=== PATIENT | male | born 1950 | race Caucasian/White ===

== ENCOUNTER 2023-03-17 16:45 | Outpatient (RCR) | payer MEDICARE, OTHER, SELFPAY ==
--- NOTE | 2023-01-07 19:24 | PT.OIE ---
Current Diagnoses Strain of left Achilles tendon, initial encounter (01/07/23) Encounter for other orthopedic aftercare (01/07/23) Visit Care Team Role Provider Type Prince Meza MD Other Providers Non-Staff Specialty: Orthopedics Address: [address] [place], [address] Email: Rc Harris MD Family Provider Non-Staff Primary Care Provider Specialty: Medical Address: [address] [place], [address] Email: Attending Provider Referring Provider Specialty: Address: Phone: Fax: Email: Physical Therapy Initial Evaluation PT-OP-A Visit Information Start: 01/05/23 12:54 Freq: Status: Active Protocol: Document 01/07/23 11:50 [facility] (Rec: 01/07/23 12:48 [facility] [id number]) Out-Patient Physical Therapy Visit Information Visit Information Visit Type Initial Evaluation Visit Note 08/26 Visit Start Time 11:45 Visit Stop Time 12:30 Total Visit Minutes 45 Visit Number 1 Number of WASTEWATER DESIGN ENGINEER Visits 0 PT-OP-B Current Condition Start: 01/05/23 12:54 Freq: Status: Active Protocol: Document 01/07/23 11:50 [facility] (Rec: 01/07/23 12:48 [facility] [id number]) Current Condition History of Current Condition Onset Date 11/28/22 Current Complaints L achilles repair History of Current Condition Pt reprots he started WBAT for about 1 week. on thursday he took one of the 3 heel lifts out and was given clearance to take one out a week. He has been using the knee scooter for longer distances. He has been doing walking around the house some w/o AD and some w/ crutches. Pt has experienced some L glute pain. He does have history of some LBP that doesn't bother him much. Pt was snow cat skiing in on Sep 28and caught his tip under soemthin and was thrown. he was in his ski boot. He didn't know he ruputured his achilles until later. Pt had secondary repair of L achilles tendon w/proximal release on 11/28/22. No history of achilles issues. He idd have a Lisfranc fracture about 12 years ago and had surgery w/ hardware taken out a year or 2 after the repair. Pt has one flight of stairs at home which he has done okay on. He typically would do a bit of hiking and go for walks this time of year and yard work. he has done only a little yard work. He typically downhill skis in the winter. Pt will see January 23 again. Treatment Goals Patient/Caregiver Goals return to skiing, walking, hiking PT-OP-C Subjective Start: 01/05/23 12:54 Freq: Status: Active Protocol: Document 01/07/23 11:50 [facility] (Rec: 01/07/23 12:48 [facility] [id number]) Patient Questionnaires Foot & Ankle Ability Measure- ADL and Sports FAAM-ADL Score 45/84 FAAM-Sport Score 5/27 Lower Extremity Functional Scale LEFS Score 42/80 OP-PT Pain Assessment Location L ankle Pain Location Details achilles Scale Used minimal Description- Other (been in boot) Frequency Occasional Other Pain Aggravating Factors busy day Other Pain Alleviating Factors anti-inflamatory rarely PT-OP-F Manual Assessment Start: 01/05/23 12:54 Freq: Status: Active Protocol: Document 01/07/23 11:50 [facility] (Rec: 01/07/23 12:48 [facility] [id number]) Manual Assessments Soft Tissue Assessment Soft Tissue Mobility Assessment good healing of scar PT-OP-G Mobility & Gait Start: 01/05/23 12:54 Freq: Status: Active Protocol: Document 01/07/23 11:50 [facility] (Rec: 01/07/23 12:48 [facility] [id number]) OP Gait Assessment Comments Gait Comments Pt amb w/boot on LLE w/dec stride length PT-OP-K Range of Motion Start: 01/05/23 12:54 Freq: Status: Active Protocol: Document 01/07/23 11:50 [facility] (Rec: 01/07/23 12:48 [facility] [id number]) Ankle and Foot Goniometric Range of Motion Ankle and Foot Right Active Dorsiflexion with Knee Flexed 10 Dorsiflexion with Knee Extended 2 Plantarflexion 51 Inversion 20 Eversion 20 Left Active Dorsiflexion with Knee Flexed 5 Dorsiflexion with Knee Extended 10 Plantarflexion 38 Inversion 17 Eversion 9 Comments lacking to neutral in DF positions PT-OP-M Strength Start: 01/05/23 12:54 Freq: Status: Active Protocol: Document 01/07/23 11:50 [facility] (Rec: 01/07/23 12:48 [facility] [id number]) Hip Strength Hip Manual Muscle Testing Right Flexion (L2) 4 Good Extension (S1) 5 Normal Abduction 4+ Good+ Adduction 4- Good- External Rotation 4+ Good+ Internal Rotation 5 Normal Left Flexion (L2) 4- Good- Extension (S1) 4+ Good+ Abduction 4- Good- Adduction 3+ Fair+ External Rotation 4- Good- Internal Rotation 4+ Good+ Knee Strength Knee Manual Muscle Testing Right Flexion (S2) 5 Normal Extension (L3) 5 Normal Left Flexion (S2) 3+ Fair+ Extension (L3) 4- Good- Ankle/Foot Strength Ankle and Foot Manual Muscle Testing Right Dorsiflexion (L4) 5 Normal Plantarflexion (S1) 5 Normal Inversion 5 Normal Eversion (S1) 5 Normal Comments PF tested seated Left Comments n/t d/t restrictions PT-OP-Q Treatments Start: 01/05/23 12:54 Freq: Status: Active Protocol: Document 01/07/23 11:50 [facility] (Rec: 01/07/23 12:48 [facility] [id number]) Therapeutic Exercises Supine Exercises DF Supine Exercise Name AROM Side left Reps/Minutes 10 Sitting Exercises knee strength Sitting Exercise Name Knee ext & flex Side left Equipment Used green band Reps/Minutes 20 ea ROM Sitting Exercise Name inversion/eversion in PF and DF/PF in comfortable range (DF not past neutra Side left Reps/Minutes 10 ea Manual Therapy Treatment Soft Tissue Mobilization calf Body Location med L Mobilization Type Myofascial Release,Rolling, Strumming Intensity/Depth Moderate Body Position Supine PT-OP-T Assessment and Plan Start: 01/05/23 12:54 Freq: Status: Active Protocol: Document 01/07/23 11:50 [facility] (Rec: 01/07/23 12:48 [facility] [id number]) Physical Therapy Assessment Rehab Potential Rehabilitation Potential Excellent Evaluation Complexity Number of Personal Factors/Comorbidities 3 or More Number of Body Systems Impaired 4 or More Clinical Presentation at Evaluation Evolving Impairments Impairments Activity Tolerance,Balance, Functional Activities, Functional Mobility,Gait, Integument,Pain,Posture,ROM, Soft Tissue Mobility,Strength Goals LEFS Impairment 42/80 Short Term Goal (STG) Pt will improve score to at least 52/80 to show improved fucntional ability. STG Duration 02/23/23 Assisted Goal (LTG) Pt will improve score to at least 65/80 to show improved fucntional ability. LTG Duration 03/29/23 activities Short Term Goal (STG) Pt will be able to start short walks w/o boot without inc pain greater than 3/10 STG Duration 02/25/23 Risk Control Product Liability Director Goal (LTG) Pt will be able to return to hiking on uneven terrain w/o pain greater than 1/10. LTG Duration 04/01/23 ROM Short Term Goal (STG) Pt will imrpove DF to neutral in both knee ext and flex position to imrpove pt gait mechanics and functional ablity. STG Duration 02/14/23 Assisted Goal (LTG) Pt will imrpove DF to 5 deg knee ext and 10 deg in knee flex position to imrpove pt gait mechanics and functional ablity. LTG Duration 04/01/23 Assessment Summary Assessment Pt presents 5 weeks and 5 days s/p L achilles tendon repair w/proximal release. He has been amb some WBAT per MD release at last visit and has taken 1/3 heel lifts out of his shoe and was insturcted to dec one each week (mondays). he has ovearll good healing of the scar and good pain contorl and as expected has L sided weakness and dec ROM. Pt is typically active and hikes /walks in the summer and skis in the winter. Pt would benefit from skilled PT to work on this in order to return pt back to high activity level. Physical Therapy Plan Frequency and Duration Frequency of Treatment 1-2x/wk Duration of treatment (weeks) 12 Plan of Care Start Date 01/07/23 Plan of Care End Date 04/01/23 Therapeutic Interventions Therapeutic Interventions Balance Training,Gait Training ,Home Exercise Program,Joint Mobilizations,Manual Therapy, Neuromuscular Re-education, Orthotic/Prosthetic Management ,Patient/Caregiver Education, Self-Care/Home Management,Soft Tissue Mobilization,Taping, Therapeutic Activities, Therapeutic Exercises Modalities Cold Pack/Ice Massage,Electric Stimulation,Hot Packs, Infrared Therapy,Iontophoresis ,Ultrasound Next Visit Focus/Plan Next Note Type Treatment Note Next Visit Plan follow protocol: starting 01/09 -01/23 (6-8 wks)- WBAT in boot; start SLOW DF stretching; bike , work on gait in boot, ROM for ankle (BAPs board, ABCs, circles -slow and gentle for all); STM to calf and scar
--- NOTE | 2023-01-07 19:24 | PT.OPPOC ---
Physical, Occupational & Speech Therapy At [facility] Current Diagnoses Strain of left Achilles tendon, initial encounter (01/07/23) Encounter for other orthopedic aftercare (01/07/23) Visit Care Team Role Provider Type Prince Meza MD Other Providers Non-Staff Specialty: Orthopedics Address: [address] [place], [address] Email: Rc Harris MD Family Provider Non-Staff Primary Care Provider Specialty: Medical Address: [address] [place], [address] Email: Attending Provider Referring Provider Specialty: Address: Phone: Fax: Email: Plan Of Care PT-OP-T Assessment and Plan Start: 01/05/23 12:54 Freq: Status: Active Protocol: Document 01/07/23 11:50 [facility] (Rec: 01/07/23 12:48 [facility] [id number]) Physical Therapy Assessment Rehab Potential Rehabilitation Potential Excellent Evaluation Complexity Number of Personal Factors/Comorbidities 3 or More Number of Body Systems Impaired 4 or More Clinical Presentation at Evaluation Evolving Impairments Impairments Activity Tolerance,Balance, Functional Activities, Functional Mobility,Gait, Integument,Pain,Posture,ROM, Soft Tissue Mobility,Strength Goals LEFS Impairment 42/80 Short Term Goal (STG) Pt will improve score to at least 52/80 to show improved fucntional ability. STG Duration 02/23/23 Detention Goal (LTG) Pt will improve score to at least 65/80 to show improved fucntional ability. LTG Duration 03/29/23 activities Short Term Goal (STG) Pt will be able to start short walks w/o boot without inc pain greater than 3/10 STG Duration 02/25/23 Detention Goal (LTG) Pt will be able to return to hiking on uneven terrain w/o pain greater than 1/10. LTG Duration 04/01/23 ROM Short Term Goal (STG) Pt will imrpove DF to neutral in both knee ext and flex position to imrpove pt gait mechanics and functional ablity. STG Duration 02/14/23 Phys Asst Goal (LTG) Pt will imrpove DF to 5 deg knee ext and 10 deg in knee flex position to imrpove pt gait mechanics and functional ablity. LTG Duration 04/01/23 Assessment Summary Assessment Pt presents 5 weeks and 5 days s/p L achilles tendon repair w/proximal release. He has been amb some WBAT per MD release at last visit and has taken 1/3 heel lifts out of his shoe and was insturcted to dec one each week (mondays). he has ovearll good healing of the scar and good pain contorl and as expected has L sided weakness and dec ROM. Pt is typically active and hikes /walks in the summer and skis in the winter. Pt would benefit from skilled PT to work on this in order to return pt back to high activity level. Physical Therapy Plan Frequency and Duration Frequency of Treatment 1-2x/wk Duration of treatment (weeks) 12 Plan of Care Start Date 01/07/23 Plan of Care End Date 04/01/23 Therapeutic Interventions Therapeutic Interventions Balance Training,Gait Training ,Home Exercise Program,Joint Mobilizations,Manual Therapy, Neuromuscular Re-education, Orthotic/Prosthetic Management ,Patient/Caregiver Education, Self-Care/Home Management,Soft Tissue Mobilization,Taping, Therapeutic Activities, Therapeutic Exercises Modalities Cold Pack/Ice Massage,Electric Stimulation,Hot Packs, Infrared Therapy,Iontophoresis ,Ultrasound Next Visit Focus/Plan Next Note Type Treatment Note Next Visit Plan follow protocol: starting 01/09 -01/23 (6-8 wks)- WBAT in boot; start SLOW DF stretching; bike , work on gait in boot, ROM for ankle (BAPs board, ABCs, circles -slow and gentle for all); STM to calf and scar Plan of Care Dates Plan of Care Start Date 01/07/23 Plan of Care End Date 04/01/23 Electronically Signed by: Nakia Ferrer, PT 01/07/231923 If you are in agreement with this Plan of Care, please return a signed and dated copy. I have reviewed this Plan of Care and certify that the skilled therapy services above are required to meet the patient?s needs. Physician Signature Date Printed Name and Credentials Clinical Instructor Signature Printed Name and Credentials
--- NOTE | 2023-01-09 16:46 | PT.OTN ---
Current Diagnoses Strain of left Achilles tendon, initial encounter (01/09/23) Encounter for other orthopedic aftercare (01/09/23) Physical Therapy Treatment Note PT-OP-A Visit Information Start: 01/05/23 12:54 Freq: Status: Active Protocol: Document 01/09/23 15:15 [facility] (Rec: 01/09/23 16:45 [facility] [id number]) Out-Patient Physical Therapy Visit Information Visit Information Visit Type Treatment Note Visit Note 09/26 Visit Start Time 15:17 Visit Stop Time 16:07 Total Visit Minutes 50 Visit Number 2 Number of OPERATIONS LEAD Visits 1 PT-OP-B Current Condition Start: 01/05/23 12:54 Freq: Status: Active Protocol: Document 01/07/23 11:50 [facility] (Rec: 01/07/23 12:48 [facility] [id number]) Current Condition History of Current Condition Onset Date 11/28/22 Current Complaints L achilles repair History of Current Condition Pt reprots he started WBAT for about 1 week. on thursday he took one of the 3 heel lifts out and was given clearance to take one out a week. He has been using the knee scooter for longer distances. He has been doing walking around the house some w/o AD and some w/ crutches. Pt has experienced some L glute pain. He does have history of some LBP that doesn't bother him much. Pt was snow cat skiing in on Sep 28and caught his tip under soemthin and was thrown. he was in his ski boot. He didn't know he ruputured his achilles until later. Pt had secondary repair of L achilles tendon w/proximal release on 11/28/22. No history of achilles issues. He idd have a Lisfranc fracture about 12 years ago and had surgery w/ hardware taken out a year or 2 after the repair. Pt has one flight of stairs at home which he has done okay on. He typically would do a bit of hiking and go for walks this time of year and yard work. he has done only a little yard work. He typically downhill skis in the winter. Pt will see January 23 again. Treatment Goals Patient/Caregiver Goals return to skiing, walking, hiking PT-OP-C Subjective Start: 01/05/23 12:54 Freq: Status: Active Protocol: Document 01/09/23 15:15 [facility] (Rec: 01/09/23 16:45 [facility] [id number]) OP-PT Subjective Patient Comments Patient Comments Pt reports his L knee started to hurt yesterday so he added the easy up to his R foot today. He was up more yesterday and without the jersey wrap and woke up with increased swelling so put the jersey wrap back on today. PT-OP-F Manual Assessment Start: 01/05/23 12:54 Freq: Status: Active Protocol: Document 01/07/23 11:50 [facility] (Rec: 01/07/23 12:48 [facility] [id number]) Manual Assessments Soft Tissue Assessment Soft Tissue Mobility Assessment good healing of scar PT-OP-G Mobility & Gait Start: 01/05/23 12:54 Freq: Status: Active Protocol: Document 01/07/23 11:50 [facility] (Rec: 01/07/23 12:48 [facility] [id number]) OP Gait Assessment Comments Gait Comments Pt amb w/boot on LLE w/dec stride length PT-OP-K Range of Motion Start: 01/05/23 12:54 Freq: Status: Active Protocol: Document 01/07/23 11:50 [facility] (Rec: 01/07/23 12:48 [facility] [id number]) Ankle and Foot Goniometric Range of Motion Ankle and Foot Right Active Dorsiflexion with Knee Flexed 10 Dorsiflexion with Knee Extended 2 Plantarflexion 51 Inversion 20 Eversion 20 Left Active Dorsiflexion with Knee Flexed 5 Dorsiflexion with Knee Extended 10 Plantarflexion 38 Inversion 17 Eversion 9 Comments lacking to neutral in DF positions PT-OP-M Strength Start: 01/05/23 12:54 Freq: Status: Active Protocol: Document 01/07/23 11:50 [facility] (Rec: 01/07/23 12:48 [facility] [id number]) Hip Strength Hip Manual Muscle Testing Right Flexion (L2) 4 Good Extension (S1) 5 Normal Abduction 4+ Good+ Adduction 4- Good- External Rotation 4+ Good+ Internal Rotation 5 Normal Left Flexion (L2) 4- Good- Extension (S1) 4+ Good+ Abduction 4- Good- Adduction 3+ Fair+ External Rotation 4- Good- Internal Rotation 4+ Good+ Knee Strength Knee Manual Muscle Testing Right Flexion (S2) 5 Normal Extension (L3) 5 Normal Left Flexion (S2) 3+ Fair+ Extension (L3) 4- Good- Ankle/Foot Strength Ankle and Foot Manual Muscle Testing Right Dorsiflexion (L4) 5 Normal Plantarflexion (S1) 5 Normal Inversion 5 Normal Eversion (S1) 5 Normal Comments PF tested seated Left Comments n/t d/t restrictions PT-OP-Q Treatments Start: 01/05/23 12:54 Freq: Status: Active Protocol: Document 01/09/23 15:15 [facility] (Rec: 01/09/23 16:45 [facility] [id number]) Therapeutic Exercises Supine Exercises DF Supine Exercise Name AROM Side left Reps/Minutes 10 Sitting Exercises BAPS Sitting Exercise Name ankle ROM using BAPS board in sitting: a/p, m/l, CW/CCW Side left Resistance Level 5 Equipment Used BAPS Reps/Minutes 4 min Comments challenged w/ plantarflexion and CW/CCW knee strength Sitting Exercise Name Knee ext & flex Side left Equipment Used green band Reps/Minutes 20 ea ROM Sitting Exercise Name inversion/eversion in PF and DF/PF in comfortable range (DF not past neutra Side left Reps/Minutes 10 ea Manual Therapy Treatment Soft Tissue Mobilization calf Body Location med L Mobilization Type Myofascial Release,Rolling, Strumming,Other Intensity/Depth Moderate Body Position Supine Comments light edema massage with focus on left medial malleolus w/ LE supported on bolster. scar tissue massage in all directions and circular strokes along massage distal to proximal. Self-Care/Home Management Treatment Education Patient Education Home Exercise Program,Pain Management Other Education HEP review w/ cues for limiting knee ROM w/ ankle IV/ EV ex's. Added to HEP: DF gentle stretching gastroc/ soleus w/ towel in long sitting - HO given. I/s pt in scar tissue mobilization, and discussed use of ice for edema management. PT-OP-R Modalities Start: 01/05/23 12:54 Freq: Status: Active Protocol: Document 01/09/23 15:15 [facility] (Rec: 01/09/23 16:45 [facility] [id number]) Hot Pack/Cold Pack Treatment Ice Massage Location L ankle Patient Position Hooklying Treatment Duration (minutes) 5 Patient Tolerance Good Comments focus on visible swelling around medial malleolus, and along scar - positive feedback response. PT-OP-T Assessment and Plan Start: 01/05/23 12:54 Freq: Status: Active Protocol: Document 01/09/23 15:15 [facility] (Rec: 01/09/23 16:45 [facility] [id number]) Physical Therapy Assessment Goals LEFS Impairment 42/80 Short Term Goal (STG) Pt will improve score to at least 52/80 to show improved fucntional ability. STG Duration 02/23/23 Caretaker Grounds Goal (LTG) Pt will improve score to at least 65/80 to show improved fucntional ability. LTG Duration 03/29/23 activities Short Term Goal (STG) Pt will be able to start short walks w/o boot without inc pain greater than 3/10 STG Duration 02/25/23 Detention Goal (LTG) Pt will be able to return to hiking on uneven terrain w/o pain greater than 1/10. LTG Duration 04/01/23 ROM Short Term Goal (STG) Pt will imrpove DF to neutral in both knee ext and flex position to imrpove pt gait mechanics and functional ablity. STG Duration 02/14/23 Caretaker Grounds Goal (LTG) Pt will imrpove DF to 5 deg knee ext and 10 deg in knee flex position to imrpove pt gait mechanics and functional ablity. LTG Duration 04/01/23 Assessment Summary Assessment Pt presents with L walking boot with 2/3 heel lifts inserted, and RLE easy up. He is 6 weeks post-op as of today. Walking boot doffed with treatment focus on HEP, gentle slow DF stretching, and scar tissue mobilization. Raghu demonstrates HEP compliance and requires cues to limit knee ROM w/ ankle inversion and eversion ex's. He tolerates BAPS board for ankle range of motion ex without change in baseline symptoms and is most challenged w/ concentric control of plantarflexors and with clockwise/ counterclockwise motion, and is challenged to limit knee ROM - self-awareness improves w/ cueing and repetition. He is educated to stretch dorsiflexors in painfree, comfortable range only with gentle pull, no pain. Added to HEP: DF gentle stretching of gastroc/soleus w/ towel in long sitting - HO given. I/s pt in scar tissue mobilization , and discussed use of ice and elevation for edema management. Physical Therapy Plan Frequency and Duration Frequency of Treatment 1-2x/wk Duration of treatment (weeks) 12 Plan of Care Start Date 01/07/23 Plan of Care End Date 04/01/23 Therapeutic Interventions Therapeutic Interventions Balance Training,Gait Training ,Home Exercise Program,Joint Mobilizations,Manual Therapy, Neuromuscular Re-education, Orthotic/Prosthetic Management ,Patient/Caregiver Education, Self-Care/Home Management,Soft Tissue Mobilization,Taping, Therapeutic Activities, Therapeutic Exercises Modalities Cold Pack/Ice Massage,Electric Stimulation,Hot Packs, Infrared Therapy,Iontophoresis ,Ultrasound Next Visit Focus/Plan Next Note Type Treatment Note Next Visit Plan follow protocol: starting 01/09 -01/23 (6-8 wks)- WBAT in boot; start SLOW DF stretching; bike , work on gait in boot, ROM for ankle (BAPs board, ABCs, circles -slow and gentle for all); STM to calf and scar
--- NOTE | 2023-01-15 15:20 | PT.OTN ---
Current Diagnoses Strain of left Achilles tendon, initial encounter (01/15/23) Encounter for other orthopedic aftercare (01/15/23) Physical Therapy Treatment Note PT-OP-A Visit Information Start: 01/05/23 12:54 Freq: Status: Active Protocol: Document 01/15/23 13:39 [facility] (Rec: 01/15/23 15:20 [facility] [id number]) Out-Patient Physical Therapy Visit Information Visit Information Visit Type Treatment Note Visit Note 10/24 Visit Start Time 13:36 Visit Stop Time 14:16 Total Visit Minutes 40 Visit Number 3 Number of LEAD APPLICATION ARCHITECT Visits 0 PT-OP-B Current Condition Start: 01/05/23 12:54 Freq: Status: Active Protocol: Document 01/07/23 11:50 [facility] (Rec: 01/07/23 12:48 [facility] [id number]) Current Condition History of Current Condition Onset Date 11/28/22 Current Complaints L achilles repair History of Current Condition Pt reprots he started WBAT for about 1 week. on thursday he took one of the 3 heel lifts out and was given clearance to take one out a week. He has been using the knee scooter for longer distances. He has been doing walking around the house some w/o AD and some w/ crutches. Pt has experienced some L glute pain. He does have history of some LBP that doesn't bother him much. Pt was snow cat skiing in on Sep 28and caught his tip under soemthin and was thrown. he was in his ski boot. He didn't know he ruputured his achilles until later. Pt had secondary repair of L achilles tendon w/proximal release on 11/28/22. No history of achilles issues. He idd have a Lisfranc fracture about 12 years ago and had surgery w/ hardware taken out a year or 2 after the repair. Pt has one flight of stairs at home which he has done okay on. He typically would do a bit of hiking and go for walks this time of year and yard work. he has done only a little yard work. He typically downhill skis in the winter. Pt will see January 23 again. Treatment Goals Patient/Caregiver Goals return to skiing, walking, hiking PT-OP-C Subjective Start: 01/05/23 12:54 Freq: Status: Active Protocol: Document 01/15/23 13:39 [facility] (Rec: 01/15/23 15:20 [facility] [id number]) OP-PT Subjective Patient Comments Patient Comments ROM activities are going well at home going well. The stretches feel good. PT-OP-F Manual Assessment Start: 01/05/23 12:54 Freq: Status: Active Protocol: Document 01/07/23 11:50 [facility] (Rec: 01/07/23 12:48 [id number] Manual Assessments Soft Tissue Assessment Soft Tissue Mobility Assessment good healing of scar PT-OP-G Mobility & Gait Start: 01/05/23 12:54 Freq: Status: Active Protocol: Document 01/07/23 11:50 [facility] (Rec: 01/07/23 12:48 [id number] OP Gait Assessment Comments Gait Comments Pt amb w/boot on LLE w/dec stride length PT-OP-K Range of Motion Start: 01/05/23 12:54 Freq: Status: Active Protocol: Document 01/07/23 11:50 [facility] (Rec: 01/07/23 12:48 [id number] Ankle and Foot Goniometric Range of Motion Ankle and Foot Right Active Dorsiflexion with Knee Flexed 10 Dorsiflexion with Knee Extended 2 Plantarflexion 51 Inversion 20 Eversion 20 Left Active Dorsiflexion with Knee Flexed 5 Dorsiflexion with Knee Extended 10 Plantarflexion 38 Inversion 17 Eversion 9 Comments lacking to neutral in DF positions PT-OP-M Strength Start: 01/05/23 12:54 Freq: Status: Active Protocol: Document 01/07/23 11:50 [facility] (Rec: 01/07/23 12:48 [id number]) Hip Strength Hip Manual Muscle Testing Right Flexion (L2) 4 Good Extension (S1) 5 Normal Abduction 4+ Good+ Adduction 4- Good- External Rotation 4+ Good+ Internal Rotation 5 Normal Left Flexion (L2) 4- Good- Extension (S1) 4+ Good+ Abduction 4- Good- Adduction 3+ Fair+ External Rotation 4- Good- Internal Rotation 4+ Good+ Knee Strength Knee Manual Muscle Testing Right Flexion (S2) 5 Normal Extension (L3) 5 Normal Left Flexion (S2) 3+ Fair+ Extension (L3) 4- Good- Ankle/Foot Strength Ankle and Foot Manual Muscle Testing Right Dorsiflexion (L4) 5 Normal Plantarflexion (S1) 5 Normal Inversion 5 Normal Eversion (S1) 5 Normal Comments PF tested seated Left Comments n/t d/t restrictions PT-OP-Q Treatments Start: 01/05/23 12:54 Freq: Status: Active Protocol: Document 01/15/23 13:39 [facility] (Rec: 01/15/23 15:20 [facility] [id number]) Cardio Equipment Recumbent Bicycle Duration (Minutes) 6 Resistance 5 Seat Position 5 Therapeutic Exercises Sidelying Exercises abd Side left Reps/Minutes 15 clamshells Side left Equipment Used upper [place] Reps/Minutes 20 Sitting Exercises tband Sitting Exercise Name ankle 4 way Side left Equipment Used peach Reps/Minutes 10 ea Comments comfortable range stretch Sitting Exercise Name gentle towel stretch gastroc & soleus Side left Reps/Minutes 45 sec ea BAPS Sitting Exercise Name ankle ROM using BAPS board in sitting: a/p, m/l, CW/CCW Side left Resistance Level 5 Equipment Used BAPS Reps/Minutes 15 Comments challenged w/ plantarflexion and CW/CCW Manual Therapy Treatment Soft Tissue Mobilization calf Body Location L achilles Mobilization Type Myofascial Release,Rolling, Strumming,Other Intensity/Depth Moderate Body Position Supine Comments w/APs PT-OP-R Modalities Start: 01/05/23 12:54 Freq: Status: Active Protocol: Document 01/09/23 15:15 [facility] (Rec: 01/09/23 16:45 [facility] [id number]) Hot Pack/Cold Pack Treatment Ice Massage Location L ankle Patient Position Hooklying Treatment Duration (minutes) 5 Patient Tolerance Good Comments focus on visible swelling around medial malleolus, and along scar - positive feedback response. PT-OP-T Assessment and Plan Start: 01/05/23 12:54 Freq: Status: Active Protocol: Document 01/15/23 13:39 [facility] (Rec: 01/15/23 15:20 [facility] [id number]) Physical Therapy Assessment Goals LEFS Impairment 42/80 Short Term Goal (STG) Pt will improve score to at least 52/80 to show improved fucntional ability. STG Duration 02/23/23 Straddle Truck Operator Goal (LTG) Pt will improve score to at least 65/80 to show improved fucntional ability. LTG Duration 03/29/23 activities Short Term Goal (STG) Pt will be able to start short walks w/o boot without inc pain greater than 3/10 STG Duration 02/25/23 Straddle Truck Operator Goal (LTG) Pt will be able to return to hiking on uneven terrain w/o pain greater than 1/10. LTG Duration 04/01/23 ROM Short Term Goal (STG) Pt will imrpove DF to neutral in both knee ext and flex position to imrpove pt gait mechanics and functional ablity. STG Duration 02/14/23 Straddle Truck Operator Goal (LTG) Pt will imrpove DF to 5 deg knee ext and 10 deg in knee flex position to imrpove pt gait mechanics and functional ablity. LTG Duration 04/01/23 Assessment Summary Assessment Pt is now walking with 1/3 heel lifts and notes that feels better. he did well with added exercsies and is advancing well with ROM and stability. Physical Therapy Plan Frequency and Duration Frequency of Treatment 1-2x/wk Duration of treatment (weeks) 12 Plan of Care Start Date 01/07/23 Plan of Care End Date 04/01/23 Next Visit Focus/Plan Next Note Type Treatment Note Next Visit Plan follow protocol: 01/09-01/23 (6-8 wks)- WBAT in boot; SLOW DF stretching; bike, work on gait in boot, ROM for ankle (BAPs board, ABCs, circles -slow and gentle for all); STM to calf and scar
--- NOTE | 2023-01-21 13:21 | PT.OTN ---
Current Diagnoses Strain of left Achilles tendon, initial encounter (01/21/23) Encounter for other orthopedic aftercare (01/21/23) Physical Therapy Treatment Note PT-OP-A Visit Information Start: 01/05/23 12:54 Freq: Status: Active Protocol: Document 01/21/23 10:56 [facility] (Rec: 01/21/23 13:20 [facility] [id number]) Out-Patient Physical Therapy Visit Information Visit Information Visit Type Treatment Note Visit Note 11/24 Visit Start Time 11:00 Visit Stop Time 11:40 Total Visit Minutes 40 Visit Number 4 Number of MAJOR GIFTS MANAGER Visits 1 PT-OP-B Current Condition Start: 01/05/23 12:54 Freq: Status: Active Protocol: Document 01/07/23 11:50 [facility] (Rec: 01/07/23 12:48 [facility] [id number]) Current Condition History of Current Condition Onset Date 11/28/22 Current Complaints L achilles repair History of Current Condition Pt reprots he started WBAT for about 1 week. on thursday he took one of the 3 heel lifts out and was given clearance to take one out a week. He has been using the knee scooter for longer distances. He has been doing walking around the house some w/o AD and some w/ crutches. Pt has experienced some L glute pain. He does have history of some LBP that doesn't bother him much. Pt was snow cat skiing in on Sep 28and caught his tip under soemthin and was thrown. he was in his ski boot. He didn't know he ruputured his achilles until later. Pt had secondary repair of L achilles tendon w/proximal release on 11/28/22. No history of achilles issues. He idd have a Lisfranc fracture about 12 years ago and had surgery w/ hardware taken out a year or 2 after the repair. Pt has one flight of stairs at home which he has done okay on. He typically would do a bit of hiking and go for walks this time of year and yard work. he has done only a little yard work. He typically downhill skis in the winter. Pt will see January 23 again. Treatment Goals Patient/Caregiver Goals return to skiing, walking, hiking PT-OP-C Subjective Start: 01/05/23 12:54 Freq: Status: Active Protocol: Document 01/21/23 10:56 [facility] (Rec: 01/21/23 13:20 [facility] [id number]) OP-PT Subjective Patient Comments Patient Comments Pt reports doing well. Went from using crutches to using SPC, difficulty coordinating. Goes to see the orthopedic surgeon this Thursday. Eager to progress when protocol allows. PT-OP-F Manual Assessment Start: 01/05/23 12:54 Freq: Status: Active Protocol: Document 01/07/23 11:50 [facility] (Rec: 01/07/23 12:48 [facility] [id number]) Manual Assessments Soft Tissue Assessment Soft Tissue Mobility Assessment good healing of scar PT-OP-G Mobility & Gait Start: 01/05/23 12:54 Freq: Status: Active Protocol: Document 01/07/23 11:50 [facility] (Rec: 01/07/23 12:48 [facility] [id number]) OP Gait Assessment Comments Gait Comments Pt amb w/boot on LLE w/dec stride length PT-OP-K Range of Motion Start: 01/05/23 12:54 Freq: Status: Active Protocol: Document 01/07/23 11:50 [facility] (Rec: 01/07/23 12:48 [facility] [id number]) Ankle and Foot Goniometric Range of Motion Ankle and Foot Right Active Dorsiflexion with Knee Flexed 10 Dorsiflexion with Knee Extended 2 Plantarflexion 51 Inversion 20 Eversion 20 Left Active Dorsiflexion with Knee Flexed 5 Dorsiflexion with Knee Extended 10 Plantarflexion 38 Inversion 17 Eversion 9 Comments lacking to neutral in DF positions PT-OP-M Strength Start: 01/05/23 12:54 Freq: Status: Active Protocol: Document 01/07/23 11:50 [facility] (Rec: 01/07/23 12:48 [facility] [id number]) Hip Strength Hip Manual Muscle Testing Right Flexion (L2) 4 Good Extension (S1) 5 Normal Abduction 4+ Good+ Adduction 4- Good- External Rotation 4+ Good+ Internal Rotation 5 Normal Left Flexion (L2) 4- Good- Extension (S1) 4+ Good+ Abduction 4- Good- Adduction 3+ Fair+ External Rotation 4- Good- Internal Rotation 4+ Good+ Knee Strength Knee Manual Muscle Testing Right Flexion (S2) 5 Normal Extension (L3) 5 Normal Left Flexion (S2) 3+ Fair+ Extension (L3) 4- Good- Ankle/Foot Strength Ankle and Foot Manual Muscle Testing Right Dorsiflexion (L4) 5 Normal Plantarflexion (S1) 5 Normal Inversion 5 Normal Eversion (S1) 5 Normal Comments PF tested seated Left Comments n/t d/t restrictions PT-OP-Q Treatments Start: 01/05/23 12:54 Freq: Status: Active Protocol: Document 01/21/23 10:56 SW (Rec: 01/21/23 13:20 SW [id number]) Cardio Equipment Recumbent Bicycle Duration (Minutes) 6 Resistance 5 Seat Position 5 Therapeutic Exercises Supine Exercises DF Supine Exercise Name AROM Side left Reps/Minutes 10 Sitting Exercises Dome Arches Sitting Exercise Name foot intrinsic mm strength Side left Comments Comfortable range tband Sitting Exercise Name ankle 4 way Side left Equipment Used peach Reps/Minutes 2x15 each Comments comfortable range stretch Sitting Exercise Name gentle stretch gastroc & soleus Side left Reps/Minutes 45 sec ea BAPS Sitting Exercise Name ankle ROM using BAPS board in sitting: a/p, m/l, CW/CCW Side left Resistance Level 5 Equipment Used BAPS Reps/Minutes 15 Comments challenged w/ plantarflexion and CW/CCW, tactile cues-knee accessory motion Gait Training Gait Activity SPC Device Used SPC Level of Assistance SBA Surface Smooth Distance/Duration 20 ft Treatment Focus Recipricol gait training w/ SPC Comments SPC adjustment, hand placement Manual Therapy Treatment Soft Tissue Mobilization calf Body Location L achilles Mobilization Type Myofascial Release,Rolling, Strumming,Other Intensity/Depth Moderate Body Position Supine Comments w/APs PT-OP-R Modalities Start: 01/05/23 12:54 Freq: Status: Active Protocol: Document 01/09/23 15:15 [facility] (Rec: 01/09/23 16:45 [facility] [id number]) Hot Pack/Cold Pack Treatment Ice Massage Location L ankle Patient Position Hooklying Treatment Duration (minutes) 5 Patient Tolerance Good Comments focus on visible swelling around medial malleolus, and along scar - positive feedback response. PT-OP-T Assessment and Plan Start: 01/05/23 12:54 Freq: Status: Active Protocol: Document 01/21/23 10:56 SW (Rec: 01/21/23 13:20 [id number]) Physical Therapy Assessment Goals LEFS Impairment 42/80 Short Term Goal (STG) Pt will improve score to at least 52/80 to show improved fucntional ability. STG Duration 02/23/23 Regulatory Product Manager Goal (LTG) Pt will improve score to at least 65/80 to show improved fucntional ability. LTG Duration 03/29/23 activities Short Term Goal (STG) Pt will be able to start short walks w/o boot without inc pain greater than 3/10 STG Duration 02/25/23 [facility] Goal (LTG) Pt will be able to return to hiking on uneven terrain w/o pain greater than 1/10. LTG Duration 04/01/23 ROM Short Term Goal (STG) Pt will imrpove DF to neutral in both knee ext and flex position to imrpove pt gait mechanics and functional ablity. STG Duration 02/14/23 Regulatory Product Manager Goal (LTG) Pt will imrpove DF to 5 deg knee ext and 10 deg in knee flex position to imrpove pt gait mechanics and functional ablity. LTG Duration 04/01/23 Assessment Summary Assessment Pt transitioned from crutches to SPC, instructed on use of SPC coordination, good response, plan to follow up next session. Increased reps w / gentle ankle strengthening exercises this date. Pt not feeling much with prescribed ankle 4 way HEP exercises, increased repetitions and adjusted band placement, plan to follow up with possible increased resistance as tolerated within protocol next session. Physical Therapy Plan Frequency and Duration Frequency of Treatment 1-2x/wk Duration of treatment (weeks) 12 Plan of Care Start Date 01/07/23 Plan of Care End Date 04/01/23 Therapeutic Interventions Therapeutic Interventions Balance Training,Gait Training ,Home Exercise Program,Joint Mobilizations,Manual Therapy, Neuromuscular Re-education, Orthotic/Prosthetic Management ,Patient/Caregiver Education, Self-Care/Home Management,Soft Tissue Mobilization,Taping, Therapeutic Activities, Therapeutic Exercises Modalities Cold Pack/Ice Massage,Electric Stimulation,Hot Packs, Infrared Therapy,Iontophoresis ,Ultrasound Next Visit Focus/Plan Next Note Type Treatment Note Next Visit Plan follow protocol: 01/09-01/23 (6-8 wks)- WBAT in boot; SLOW DF stretching; bike, work on gait in boot, ROM for ankle (BAPs board, ABCs, circles -slow and gentle for all); STM to calf and scar Follow up on SPC gait training prn and HEP resistance level.
--- NOTE | 2023-01-28 09:06 | PT.OTN ---
Current Diagnoses Strain of left Achilles tendon, initial encounter (01/28/23) Encounter for other orthopedic aftercare (01/28/23) Physical Therapy Treatment Note PT-OP-A Visit Information Start: 01/05/23 12:54 Freq: Status: Active Protocol: Document 01/28/23 07:30 [facility] (Rec: 01/28/23 09:06 [facility] [id number]) Out-Patient Physical Therapy Visit Information Visit Information Visit Type Treatment Note Visit Note 12/24 Student PT Luz Smalls participated in treatment session Visit Start Time 07:32 Visit Stop Time 08:17 Total Visit Minutes 45 Visit Number 5 Number of CAREGIVERS NON MEDICAL Visits 0 PT-OP-B Current Condition Start: 01/05/23 12:54 Freq: Status: Active Protocol: Document 01/07/23 11:50 [facility] (Rec: 01/07/23 12:48 [facility] [id number]) Current Condition History of Current Condition Onset Date 11/28/22 Current Complaints L achilles repair History of Current Condition Pt reprots he started WBAT for about 1 week. on thursday he took one of the 3 heel lifts out and was given clearance to take one out a week. He has been using the knee scooter for longer distances. He has been doing walking around the house some w/o AD and some w/ crutches. Pt has experienced some L glute pain. He does have history of some LBP that doesn't bother him much. Pt was snow cat skiing in on Sep 28and caught his tip under soemthin and was thrown. he was in his ski boot. He didn't know he ruputured his achilles until later. Pt had secondary repair of L achilles tendon w/proximal release on 11/28/22. No history of achilles issues. He idd have a Lisfranc fracture about 12 years ago and had surgery w/ hardware taken out a year or 2 after the repair. Pt has one flight of stairs at home which he has done okay on. He typically would do a bit of hiking and go for walks this time of year and yard work. he has done only a little yard work. He typically downhill skis in the winter. Pt will see January 23 again. Treatment Goals Patient/Caregiver Goals return to skiing, walking, hiking PT-OP-C Subjective Start: 01/05/23 12:54 Freq: Status: Active Protocol: Document 01/28/23 07:30 [facility] (Rec: 01/28/23 09:06 [facility] [id number]) OP-PT Subjective Patient Comments Patient Comments Pt reports he is now amb in ankle brace and shoe around house after seeing MD. He is not having a lot ofpain w/this . Presented w/boot on today. PT-OP-F Manual Assessment Start: 01/05/23 12:54 Freq: Status: Active Protocol: Document 01/07/23 11:50 [facility] (Rec: 01/07/23 12:48 [facility] [id number]) Manual Assessments Soft Tissue Assessment Soft Tissue Mobility Assessment good healing of scar PT-OP-G Mobility & Gait Start: 01/05/23 12:54 Freq: Status: Active Protocol: Document 01/07/23 11:50 [facility] (Rec: 01/07/23 12:48 [facility] [id number]) OP Gait Assessment Comments Gait Comments Pt amb w/boot on LLE w/dec stride length PT-OP-K Range of Motion Start: 01/05/23 12:54 Freq: Status: Active Protocol: Document 01/07/23 11:50 [facility] (Rec: 01/07/23 12:48 [facility] [id number]) Ankle and Foot Goniometric Range of Motion Ankle and Foot Right Active Dorsiflexion with Knee Flexed 10 Dorsiflexion with Knee Extended 2 Plantarflexion 51 Inversion 20 Eversion 20 Left Active Dorsiflexion with Knee Flexed 5 Dorsiflexion with Knee Extended 10 Plantarflexion 38 Inversion 17 Eversion 9 Comments lacking to neutral in DF positions PT-OP-M Strength Start: 01/05/23 12:54 Freq: Status: Active Protocol: Document 01/07/23 11:50 [facility] (Rec: 01/07/23 12:48 [facility] [id number]) Hip Strength Hip Manual Muscle Testing Right Flexion (L2) 4 Good Extension (S1) 5 Normal Abduction 4+ Good+ Adduction 4- Good- External Rotation 4+ Good+ Internal Rotation 5 Normal Left Flexion (L2) 4- Good- Extension (S1) 4+ Good+ Abduction 4- Good- Adduction 3+ Fair+ External Rotation 4- Good- Internal Rotation 4+ Good+ Knee Strength Knee Manual Muscle Testing Right Flexion (S2) 5 Normal Extension (L3) 5 Normal Left Flexion (S2) 3+ Fair+ Extension (L3) 4- Good- Ankle/Foot Strength Ankle and Foot Manual Muscle Testing Right Dorsiflexion (L4) 5 Normal Plantarflexion (S1) 5 Normal Inversion 5 Normal Eversion (S1) 5 Normal Comments PF tested seated Left Comments n/t d/t restrictions PT-OP-Q Treatments Start: 01/05/23 12:54 Freq: Status: Active Protocol: Document 01/28/23 07:30 [facility] (Rec: 01/28/23 09:06 [facility] [id number]) Cardio Equipment Bicycle (Upright) Duration (Minutes) 6 Resistance 7 Seat Position 5 Therapeutic Exercises Sitting Exercises intrinsics Sitting Exercise Name big toe ext; little toe ext Side left Reps/Minutes 10 ea Dome Arches Sitting Exercise Name foot intrinsic mm strength Side left Reps/Minutes 10 in seated then 10 in standing Comments Comfortable range tband Sitting Exercise Name ankle 4 way Side left Equipment Used [place] Reps/Minutes 15 ea Comments comfortable range Manual Therapy Treatment Soft Tissue Mobilization calf Body Location L achilles, plantar fascia, fat pad Mobilization Type Myofascial Release,Rolling, Strumming,Other Intensity/Depth Moderate Body Position Supine Comments w/APs Joint Mobilizations calcaneus Joint L distraction & lat glide FM PT-OP-R Modalities Start: 01/05/23 12:54 Freq: Status: Active Protocol: Document 01/09/23 15:15 [facility] (Rec: 01/09/23 16:45 N[facility] [id number]) Hot Pack/Cold Pack Treatment Ice Massage Location L ankle Patient Position Hooklying Treatment Duration (minutes) 5 Patient Tolerance Good Comments focus on visible swelling around medial malleolus, and along scar - positive feedback response. PT-OP-T Assessment and Plan Start: 01/05/23 12:54 Freq: Status: Active Protocol: Document 01/28/23 07:30 [facility] (Rec: 01/28/23 09:06 [facility] [id number]) Physical Therapy Assessment Goals LEFS Impairment 42/80 Short Term Goal (STG) Pt will improve score to at least 52/80 to show improved fucntional ability. STG Duration 02/23/23 Fur Vault Attendant Goal (LTG) Pt will improve score to at least 65/80 to show improved fucntional ability. LTG Duration 03/29/23 activities Short Term Goal (STG) Pt will be able to start short walks w/o boot without inc pain greater than 3/10 STG Duration 02/25/23 Fur Vault Attendant Goal (LTG) Pt will be able to return to hiking on uneven terrain w/o pain greater than 1/10. LTG Duration 04/01/23 ROM Short Term Goal (STG) Pt will imrpove DF to neutral in both knee ext and flex position to imrpove pt gait mechanics and functional ablity. STG Duration 02/14/23 Fur Vault Attendant Goal (LTG) Pt will imrpove DF to 5 deg knee ext and 10 deg in knee flex position to imrpove pt gait mechanics and functional ablity. LTG Duration 04/01/23 Assessment Summary Assessment Pt did well with new exercises but does struggle w/doing intrisic mobility. He did well with inc resistance of tband Physical Therapy Plan Frequency and Duration Frequency of Treatment 1-2x/wk Duration of treatment (weeks) 12 Plan of Care Start Date 01/07/23 Plan of Care End Date 04/01/23 Next Visit Focus/Plan Next Note Type Treatment Note Next Visit Plan Start WB in brace w/balance and strength exercises
--- NOTE | 2023-01-30 11:32 | PT.OTN ---
Current Diagnoses Strain of left Achilles tendon, initial encounter (01/30/23) Encounter for other orthopedic aftercare (01/30/23) Physical Therapy Treatment Note PT-OP-A Visit Information Start: 01/05/23 12:54 Freq: Status: Active Protocol: Document 01/30/23 10:48 SP (Rec: 01/30/23 11:43 SP [id number]) Out-Patient Physical Therapy Visit Information Visit Information Visit Type Treatment Note Visit Note 01/24 Visit Start Time 10:48 Visit Stop Time 11:32 Total Visit Minutes 44 Visit Number 6 Number of RN SURGICAL PCU Visits 1 PT-OP-B Current Condition Start: 01/05/23 12:54 Freq: Status: Active Protocol: Document 01/07/23 11:50 LR (Rec: 01/07/23 12:48 [facility] [id number]) Current Condition History of Current Condition Onset Date 11/28/22 Current Complaints L achilles repair History of Current Condition Pt reprots he started WBAT for about 1 week. on thursday he took one of the 3 heel lifts out and was given clearance to take one out a week. He has been using the knee scooter for longer distances. He has been doing walking around the house some w/o AD and some w/ crutches. Pt has experienced some L glute pain. He does have history of some LBP that doesn't bother him much. Pt was snow cat skiing in on Sep 28and caught his tip under soemthin and was thrown. he was in his ski boot. He didn't know he ruputured his achilles until later. Pt had secondary repair of L achilles tendon w/proximal release on 11/28/22. No history of achilles issues. He idd have a Lisfranc fracture about 12 years ago and had surgery w/ hardware taken out a year or 2 after the repair. Pt has one flight of stairs at home which he has done okay on. He typically would do a bit of hiking and go for walks this time of year and yard work. he has done only a little yard work. He typically downhill skis in the winter. Pt will see January 23 again. Treatment Goals Patient/Caregiver Goals return to skiing, walking, hiking PT-OP-C Subjective Start: 01/05/23 12:54 Freq: Status: Active Protocol: Document 01/30/23 10:48 SP (Rec: 01/30/23 11:43 SP [id number]) OP-PT Subjective Patient Comments Patient Comments Pt reports feeling pretty good , arrival ankle wrap sleeve on L ankle donned with low Keen shoe. He asked what the physician said to PT when called ortho after last tx to ask wearing schedule L ankle brace and progression PT activities allowed to do. PT-OP-F Manual Assessment Start: 01/05/23 12:54 Freq: Status: Active Protocol: Document 01/07/23 11:50 [facility] (Rec: 01/07/23 12:48 [facility] [id number]) Manual Assessments Soft Tissue Assessment Soft Tissue Mobility Assessment good healing of scar PT-OP-G Mobility & Gait Start: 01/05/23 12:54 Freq: Status: Active Protocol: Document 01/07/23 11:50 [facility] (Rec: 01/07/23 12:48 [facility] [id number]) OP Gait Assessment Comments Gait Comments Pt amb w/boot on LLE w/dec stride length PT-OP-K Range of Motion Start: 01/05/23 12:54 Freq: Status: Active Protocol: Document 01/07/23 11:50 [facility] (Rec: 01/07/23 12:48 [facility] [id number]) Ankle and Foot Goniometric Range of Motion Ankle and Foot Right Active Dorsiflexion with Knee Flexed 10 Dorsiflexion with Knee Extended 2 Plantarflexion 51 Inversion 20 Eversion 20 Left Active Dorsiflexion with Knee Flexed 5 Dorsiflexion with Knee Extended 10 Plantarflexion 38 Inversion 17 Eversion 9 Comments lacking to neutral in DF positions PT-OP-M Strength Start: 01/05/23 12:54 Freq: Status: Active Protocol: Document 01/07/23 11:50 [facility] (Rec: 01/07/23 12:48 [facility] [id number]) Hip Strength Hip Manual Muscle Testing Right Flexion (L2) 4 Good Extension (S1) 5 Normal Abduction 4+ Good+ Adduction 4- Good- External Rotation 4+ Good+ Internal Rotation 5 Normal Left Flexion (L2) 4- Good- Extension (S1) 4+ Good+ Abduction 4- Good- Adduction 3+ Fair+ External Rotation 4- Good- Internal Rotation 4+ Good+ Knee Strength Knee Manual Muscle Testing Right Flexion (S2) 5 Normal Extension (L3) 5 Normal Left Flexion (S2) 3+ Fair+ Extension (L3) 4- Good- Ankle/Foot Strength Ankle and Foot Manual Muscle Testing Right Dorsiflexion (L4) 5 Normal Plantarflexion (S1) 5 Normal Inversion 5 Normal Eversion (S1) 5 Normal Comments PF tested seated Left Comments n/t d/t restrictions PT-OP-Q Treatments Start: 01/05/23 12:54 Freq: Status: Active Protocol: Document 01/30/23 10:48 SP (Rec: 01/30/23 11:43 SP [id number]) Cardio Equipment Bicycle (Upright) Duration (Minutes) 6 Resistance 7 Seat Position 4>5 Other cued allow AROM during peddling. Therapeutic Exercises Sitting Exercises intrinsics Sitting Exercise Name big toe ext; little toe ext ( little modified lateral lift) Side left Reps/Minutes 10 ea Comments lift, improved extension post manual and ed self (LLE over R knee) Dome Arches Sitting Exercise Name foot intrinsic mm strength Side left Reps/Minutes 10 in seated then 10 in standing Comments R teach L, improved with reps (contact knee stabilize/ alignment) BAPS Sitting Exercise Name ankle ROM using BAPS board in sitting: a/p, m/l, CW/CCW Side left Resistance Level 5 Equipment Used over tennis ball ( home assimulation) Reps/Minutes 15 Comments Challenged med/lat, better ball under forefoot/ stabilize knee Gait Training Gait Activity heel toe, toe heel AROM walking Description a wt shift, rocking Description added to HEP Device Used contact rail/chair back Level of Assistance S Treatment Focus heel toe descend, toe off gait Comments Cued stride stance, heel lift toe off LLE WB into RLE midstance with quad and glut fac improved mechanics. Was able to add arm swing, cued core fac for stability at first. Then ed carryover leaving. Manual Therapy Treatment Joint Mobilizations MTP Joint L 1-5 Direction AP, PA gentle Grade II Body Position Sitting Comments gentle manual and ed self application (LLE over R knee). Good feedback little intrinic fac EV & arch lifts. calcaneus Joint L distraction & lat glide FM PT-OP-R Modalities Start: 01/05/23 12:54 Freq: Status: Active Protocol: Document 01/09/23 15:15 NBM (Rec: 01/09/23 16:45 [facility] [id number]) Hot Pack/Cold Pack Treatment Ice Massage Location L ankle Patient Position Hooklying Treatment Duration (minutes) 5 Patient Tolerance Good Comments focus on visible swelling around medial malleolus, and along scar - positive feedback response. PT-OP-T Assessment and Plan Start: 01/05/23 12:54 Freq: Status: Active Protocol: Document 01/30/23 10:48 SP (Rec: 01/30/23 11:43 SP [id number]) Physical Therapy Assessment Goals LEFS Impairment 42/80 Short Term Goal (STG) Pt will improve score to at least 52/80 to show improved fucntional ability. STG Duration 02/23/23 Director Of Rooms Goal (LTG) Pt will improve score to at least 65/80 to show improved fucntional ability. LTG Duration 03/29/23 activities Short Term Goal (STG) Pt will be able to start short walks w/o boot without inc pain greater than 3/10 STG Duration 02/25/23 Director Of Rooms Goal (LTG) Pt will be able to return to hiking on uneven terrain w/o pain greater than 1/10. LTG Duration 04/01/23 ROM Short Term Goal (STG) Pt will imrpove DF to neutral in both knee ext and flex position to imrpove pt gait mechanics and functional ablity. STG Duration 02/14/23 Director Of Rooms Goal (LTG) Pt will imrpove DF to 5 deg knee ext and 10 deg in knee flex position to imrpove pt gait mechanics and functional ablity. LTG Duration 04/01/23 Assessment Summary Assessment Pt improved arch, 1st and 5th MTP lift post manual and cued ed RLE performance for reeducate LLE. Pt cues for set up, contact support and arm swing support with added stride rocking/ wt shifting ( ankle wrap support with shoe donned). Physical Therapy Plan Frequency and Duration Frequency of Treatment 1-2x/wk Duration of treatment (weeks) 12 Plan of Care Start Date 01/07/23 Plan of Care End Date 04/01/23 Therapeutic Interventions Therapeutic Interventions Balance Training,Gait Training ,Home Exercise Program,Joint Mobilizations,Manual Therapy, Neuromuscular Re-education, Orthotic/Prosthetic Management ,Patient/Caregiver Education, Self-Care/Home Management,Soft Tissue Mobilization,Taping, Therapeutic Activities, Therapeutic Exercises Modalities Cold Pack/Ice Massage,Electric Stimulation,Hot Packs, Infrared Therapy,Iontophoresis ,Ultrasound Next Visit Focus/Plan Next Note Type Treatment Note Next Visit Plan REcheck: arch lifts, wt shift rocking for heel/toe, toe off gait phase progression. POC: Start WB in brace w/ balance and strength exercises
--- NOTE | 2023-02-02 09:49 | PT.OTN ---
Current Diagnoses Strain of left Achilles tendon, initial encounter (02/02/23) Encounter for other orthopedic aftercare (02/02/23) Physical Therapy Treatment Note PT-OP-A Visit Information Start: 01/05/23 12:54 Freq: Status: Active Protocol: Document 02/02/23 09:03 [facility] (Rec: 02/02/23 09:49 [facility] [id number]) Out-Patient Physical Therapy Visit Information Visit Information Visit Type Treatment Note Visit Note 02/23 Visit Start Time 09:05 Visit Stop Time 09:45 Total Visit Minutes 40 Visit Number 7 Number of AUTHORIZATION REPRESENTATIVE Visits 0 PT-OP-B Current Condition Start: 01/05/23 12:54 Freq: Status: Active Protocol: Document 01/07/23 11:50 [facility] (Rec: 01/07/23 12:48 [facility] [id number]) Current Condition History of Current Condition Onset Date 11/28/22 Current Complaints L achilles repair History of Current Condition Pt reprots he started WBAT for about 1 week. on thursday he took one of the 3 heel lifts out and was given clearance to take one out a week. He has been using the knee scooter for longer distances. He has been doing walking around the house some w/o AD and some w/ crutches. Pt has experienced some L glute pain. He does have history of some LBP that doesn't bother him much. Pt was snow cat skiing in on Sep 28and caught his tip under soemthin and was thrown. he was in his ski boot. He didn't know he ruputured his achilles until later. Pt had secondary repair of L achilles tendon w/proximal release on 11/28/22. No history of achilles issues. He idd have a Lisfranc fracture about 12 years ago and had surgery w/ hardware taken out a year or 2 after the repair. Pt has one flight of stairs at home which he has done okay on. He typically would do a bit of hiking and go for walks this time of year and yard work. he has done only a little yard work. He typically downhill skis in the winter. Pt will see January 23 again. Treatment Goals Patient/Caregiver Goals return to skiing, walking, hiking PT-OP-C Subjective Start: 01/05/23 12:54 Freq: Status: Active Protocol: Document 02/02/23 09:03 [facility] (Rec: 02/02/23 09:49 [facility] [id number]) OP-PT Subjective Patient Comments Patient Comments Pt reports he feels like he is doing pretty good and isn't having a lot of problems. Pt reports doing a couple block walks w/o issue. PT-OP-F Manual Assessment Start: 01/05/23 12:54 Freq: Status: Active Protocol: Document 01/07/23 11:50 [facility] (Rec: 01/07/23 12:48 [facility] [id number]) Manual Assessments Soft Tissue Assessment Soft Tissue Mobility Assessment good healing of scar PT-OP-G Mobility & Gait Start: 01/05/23 12:54 Freq: Status: Active Protocol: Document 01/07/23 11:50 [facility] (Rec: 01/07/23 12:48 [facility] [id number]) OP Gait Assessment Comments Gait Comments Pt amb w/boot on LLE w/dec stride length PT-OP-K Range of Motion Start: 01/05/23 12:54 Freq: Status: Active Protocol: Document 01/07/23 11:50 [facility] (Rec: 01/07/23 12:48 [facility] [id number]) Ankle and Foot Goniometric Range of Motion Ankle and Foot Right Active Dorsiflexion with Knee Flexed 10 Dorsiflexion with Knee Extended 2 Plantarflexion 51 Inversion 20 Eversion 20 Left Active Dorsiflexion with Knee Flexed 5 Dorsiflexion with Knee Extended 10 Plantarflexion 38 Inversion 17 Eversion 9 Comments lacking to neutral in DF positions PT-OP-M Strength Start: 01/05/23 12:54 Freq: Status: Active Protocol: Document 01/07/23 11:50 [facility] (Rec: 01/07/23 12:48 [facility] [id number]) Hip Strength Hip Manual Muscle Testing Right Flexion (L2) 4 Good Extension (S1) 5 Normal Abduction 4+ Good+ Adduction 4- Good- External Rotation 4+ Good+ Internal Rotation 5 Normal Left Flexion (L2) 4- Good- Extension (S1) 4+ Good+ Abduction 4- Good- Adduction 3+ Fair+ External Rotation 4- Good- Internal Rotation 4+ Good+ Knee Strength Knee Manual Muscle Testing Right Flexion (S2) 5 Normal Extension (L3) 5 Normal Left Flexion (S2) 3+ Fair+ Extension (L3) 4- Good- Ankle/Foot Strength Ankle and Foot Manual Muscle Testing Right Dorsiflexion (L4) 5 Normal Plantarflexion (S1) 5 Normal Inversion 5 Normal Eversion (S1) 5 Normal Comments PF tested seated Left Comments n/t d/t restrictions PT-OP-Q Treatments Start: 01/05/23 12:54 Freq: Status: Active Protocol: Document 02/02/23 09:03 [facility] (Rec: 02/02/23 09:49 [facility] [id number]) Cardio Equipment Bicycle (Upright) Duration (Minutes) 5 Resistance 7 Seat Position 5 Other cued allow AROM during peddling. Gym Equipment Shuttle Balance blue clips Comments fwd & side: WBOS & NBOS fwd: staggered stance B Therapeutic Exercises Standing Exercises calf stretch Standing Exercise Name 1. gastroc 2. soleus Side left Reps/Minutes 30 sec Comments fwd lean squats Side bilateral Reps/Minutes 10 Comments chair behind PF Standing Exercise Name DL-comfortable range Side bilateral Reps/Minutes 12 DF Standing Exercise Name alt standing Side bilateral Reps/Minutes 10 ea Comments cues to not lean back w/hips Manual Therapy Treatment Soft Tissue Mobilization calf Body Location L achilles, plantar fascia, fat pad Mobilization Type Myofascial Release,Rolling, Strumming,Other Intensity/Depth Moderate Body Position Supine Comments w/APs Joint Mobilizations calcaneus Joint L distraction & lat glide FM Neuro Re-Education Treatment Balance Activities SLS Comments B trials tilt board Comments fwd/back; side/side: wt shifts foam Comments 1. WBOS EC 2. NBOS EC 3 staggered stance B w/head turns PT-OP-R Modalities Start: 01/05/23 12:54 Freq: Status: Active Protocol: Document 01/09/23 15:15 [facility] (Rec: 01/09/23 16:45 NB [id number]) Hot Pack/Cold Pack Treatment Ice Massage Location L ankle Patient Position Hooklying Treatment Duration (minutes) 5 Patient Tolerance Good Comments focus on visible swelling around medial malleolus, and along scar - positive feedback response. PT-OP-T Assessment and Plan Start: 01/05/23 12:54 Freq: Status: Active Protocol: Document 02/02/23 09:03 [facility] (Rec: 02/02/23 09:49 [facility] [id number]) Physical Therapy Assessment Goals LEFS Impairment 42/80 Short Term Goal (STG) Pt will improve score to at least 52/80 to show improved fucntional ability. STG Duration 02/23/23 Fpc Goal (LTG) Pt will improve score to at least 65/80 to show improved fucntional ability. LTG Duration 03/29/23 activities Short Term Goal (STG) Pt will be able to start short walks w/o boot without inc pain greater than 3/10 STG Duration 02/25/23 Fpc Goal (LTG) Pt will be able to return to hiking on uneven terrain w/o pain greater than 1/10. LTG Duration 04/01/23 ROM Short Term Goal (STG) Pt will imrpove DF to neutral in both knee ext and flex position to imrpove pt gait mechanics and functional ablity. STG Duration 02/14/23 Fpc Goal (LTG) Pt will imrpove DF to 5 deg knee ext and 10 deg in knee flex position to imrpove pt gait mechanics and functional ablity. LTG Duration 04/01/23 Assessment Summary Assessment Pt did very well with balance activities and was able to be progressed into more difficult WB exercises for home. Pt noted min discomfort w/heel raises an otherwise no discofmort. Physical Therapy Plan Frequency and Duration Frequency of Treatment 1-2x/wk Duration of treatment (weeks) 12 Plan of Care Start Date 01/07/23 Plan of Care End Date 04/01/23 Next Visit Focus/Plan Next Note Type Treatment Note Next Visit Plan Start WB in brace w/balance and strength exercises
--- NOTE | 2023-02-05 16:23 | PT.OTN ---
Current Diagnoses Strain of left Achilles tendon, initial encounter (02/05/23) Encounter for other orthopedic aftercare (02/05/23) Physical Therapy Treatment Note PT-OP-A Visit Information Start: 01/05/23 12:54 Freq: Status: Active Protocol: Document 02/05/23 15:19 [facility] (Rec: 02/05/23 16:23 [facility] [id number]) Out-Patient Physical Therapy Visit Information Visit Information Visit Type Treatment Note Visit Note 03/26 Visit Start Time 15:17 Visit Stop Time 16:02 Total Visit Minutes 45 Visit Number 8 Number of [place]ET[employer] TECHNICIAN Visits 0 PT-OP-B Current Condition Start: 01/05/23 12:54 Freq: Status: Active Protocol: Document 01/07/23 11:50 [facility] (Rec: 01/07/23 12:48 [facility] [id number]) Current Condition History of Current Condition Onset Date 11/28/22 Current Complaints L achilles repair History of Current Condition Pt reprots he started WBAT for about 1 week. on thursday he took one of the 3 heel lifts out and was given clearance to take one out a week. He has been using the knee scooter for longer distances. He has been doing walking around the house some w/o AD and some w/ crutches. Pt has experienced some L glute pain. He does have history of some LBP that doesn't bother him much. Pt was snow cat skiing in on Sep 28and caught his tip under soemthin and was thrown. he was in his ski boot. He didn't know he ruputured his achilles until later. Pt had secondary repair of L achilles tendon w/proximal release on 11/28/22. No history of achilles issues. He idd have a Lisfranc fracture about 12 years ago and had surgery w/ hardware taken out a year or 2 after the repair. Pt has one flight of stairs at home which he has done okay on. He typically would do a bit of hiking and go for walks this time of year and yard work. he has done only a little yard work. He typically downhill skis in the winter. Pt will see January 23 again. Treatment Goals Patient/Caregiver Goals return to skiing, walking, hiking PT-OP-C Subjective Start: 01/05/23 12:54 Freq: Status: Active Protocol: Document 02/05/23 15:19 [facility] (Rec: 02/05/23 16:23 [facility] [id number]) OP-PT Subjective Patient Comments Patient Comments Pt reports his B knees have been a little sore recently. unsure if from the squats or just walking more have been making them sore. PT-OP-F Manual Assessment Start: 01/05/23 12:54 Freq: Status: Active Protocol: Document 01/07/23 11:50 [facility] (Rec: 01/07/23 12:48 [id number] Manual Assessments Soft Tissue Assessment Soft Tissue Mobility Assessment good healing of scar PT-OP-G Mobility & Gait Start: 01/05/23 12:54 Freq: Status: Active Protocol: Document 01/07/23 11:50 [facility] (Rec: 01/07/23 12:48 [facility] [id number]) OP Gait Assessment Comments Gait Comments Pt amb w/boot on LLE w/dec stride length PT-OP-K Range of Motion Start: 01/05/23 12:54 Freq: Status: Active Protocol: Document 01/07/23 11:50 [facility] (Rec: 01/07/23 12:48 [facility] [id number]) Ankle and Foot Goniometric Range of Motion Ankle and Foot Right Active Dorsiflexion with Knee Flexed 10 Dorsiflexion with Knee Extended 2 Plantarflexion 51 Inversion 20 Eversion 20 Left Active Dorsiflexion with Knee Flexed 5 Dorsiflexion with Knee Extended 10 Plantarflexion 38 Inversion 17 Eversion 9 Comments lacking to neutral in DF positions PT-OP-M Strength Start: 01/05/23 12:54 Freq: Status: Active Protocol: Document 01/07/23 11:50 [facility] (Rec: 01/07/23 12:48 [facility] [id number]) Hip Strength Hip Manual Muscle Testing Right Flexion (L2) 4 Good Extension (S1) 5 Normal Abduction 4+ Good+ Adduction 4- Good- External Rotation 4+ Good+ Internal Rotation 5 Normal Left Flexion (L2) 4- Good- Extension (S1) 4+ Good+ Abduction 4- Good- Adduction 3+ Fair+ External Rotation 4- Good- Internal Rotation 4+ Good+ Knee Strength Knee Manual Muscle Testing Right Flexion (S2) 5 Normal Extension (L3) 5 Normal Left Flexion (S2) 3+ Fair+ Extension (L3) 4- Good- Ankle/Foot Strength Ankle and Foot Manual Muscle Testing Right Dorsiflexion (L4) 5 Normal Plantarflexion (S1) 5 Normal Inversion 5 Normal Eversion (S1) 5 Normal Comments PF tested seated Left Comments n/t d/t restrictions PT-OP-Q Treatments Start: 01/05/23 12:54 Freq: Status: Active Protocol: Document 02/05/23 15:19 [facility] (Rec: 02/05/23 16:23 [facility] [id number]) Therapeutic Exercises Standing Exercises step down Side left Equipment Used 4 in step Reps/Minutes 15 Comments control step up Standing Exercise Name w/alt march Side left Equipment Used 5 in step Reps/Minutes 16 Comments rail prn calf stretch Standing Exercise Name 1. gastroc 2. soleus Side left Reps/Minutes 30 sec Comments fwd lean squats Side bilateral Reps/Minutes 10 Comments cues for knees PF Standing Exercise Name DL-comfortable range Side bilateral Reps/Minutes 15 DF Standing Exercise Name DL Side bilateral Reps/Minutes 10 ea Comments cues to not lean back w/hips Manual Therapy Treatment Soft Tissue Mobilization calf Body Location L achilles Mobilization Type Myofascial Release,Rolling, Strumming,Other Intensity/Depth Moderate Body Position Supine Comments w/APs Joint Mobilizations tibfib Joint distal tib AP; distal fib PA FM talus Joint L Direction distraciton , med glide, AP FM Comments percussion and FM calcaneus Joint L distraction & lat glide FM PT-OP-R Modalities Start: 01/05/23 12:54 Freq: Status: Active Protocol: Document 01/09/23 15:15 [facility] (Rec: 01/09/23 16:45 [facility] [id number]) Hot Pack/Cold Pack Treatment Ice Massage Location L ankle Patient Position Hooklying Treatment Duration (minutes) 5 Patient Tolerance Good Comments focus on visible swelling around medial malleolus, and along scar - positive feedback response. PT-OP-T Assessment and Plan Start: 01/05/23 12:54 Freq: Status: Active Protocol: Document 02/05/23 15:19 [facility] (Rec: 02/05/23 16:23 [facility] [id number]) Physical Therapy Assessment Goals LEFS Impairment 42/80 Short Term Goal (STG) Pt will improve score to at least 52/80 to show improved fucntional ability. STG Duration 7/10/23 Halfway Goal (LTG) Pt will improve score to at least 65/80 to show improved fucntional ability. LTG Duration 03/29/23 activities Short Term Goal (STG) Pt will be able to start short walks w/o boot without inc pain greater than 3/10 STG Duration 02/25/23 Card Table Attendant Goal (LTG) Pt will be able to return to hiking on uneven terrain w/o pain greater than 1/10. LTG Duration 04/01/23 ROM Short Term Goal (STG) Pt will imrpove DF to neutral in both knee ext and flex position to imrpove pt gait mechanics and functional ablity. STG Duration 02/14/23 Halfway Goal (LTG) Pt will imrpove DF to 5 deg knee ext and 10 deg in knee flex position to imrpove pt gait mechanics and functional ablity. LTG Duration 04/01/23 Assessment Summary Assessment Pt had imrpoved PF and DF after mobs. No pain w/ exercsies and was able to work on stairs w/improved ability to use LLE Physical Therapy Plan Frequency and Duration Frequency of Treatment 1-2x/wk Duration of treatment (weeks) 12 Plan of Care Start Date 01/07/23 Plan of Care End Date 04/01/23 Next Visit Focus/Plan Next Note Type Treatment Note Next Visit Plan cont to work WB in brace w/ balance and strength exercises ; PA talus FM
--- NOTE | 2023-02-09 13:35 | PT.OTN ---
Current Diagnoses Strain of left Achilles tendon, initial encounter (02/09/23) Encounter for other orthopedic aftercare (02/09/23) Physical Therapy Treatment Note PT-OP-A Visit Information Start: 01/05/23 12:54 Freq: Status: Active Protocol: Document 02/09/23 12:50 [facility] (Rec: 02/09/23 13:35 [facility] [id number]) Out-Patient Physical Therapy Visit Information Visit Information Visit Type Treatment Note Visit Note 04/26 Visit Start Time 12:48 Visit Stop Time 13:30 Total Visit Minutes 42 Visit Number 9 Number of STAMP MAKER Visits 0 PT-OP-B Current Condition Start: 01/05/23 12:54 Freq: Status: Active Protocol: Document 01/07/23 11:50 [facility] (Rec: 01/07/23 12:48 [facility] [id number]) Current Condition History of Current Condition Onset Date 11/28/22 Current Complaints L achilles repair History of Current Condition Pt reprots he started WBAT for about 1 week. on thursday he took one of the 3 heel lifts out and was given clearance to take one out a week. He has been using the knee scooter for longer distances. He has been doing walking around the house some w/o AD and some w/ crutches. Pt has experienced some L glute pain. He does have history of some LBP that doesn't bother him much. Pt was snow cat skiing in on Sep 28and caught his tip under soemthin and was thrown. he was in his ski boot. He didn't know he ruputured his achilles until later. Pt had secondary repair of L achilles tendon w/proximal release on 11/28/22. No history of achilles issues. He idd have a Lisfranc fracture about 12 years ago and had surgery w/ hardware taken out a year or 2 after the repair. Pt has one flight of stairs at home which he has done okay on. He typically would do a bit of hiking and go for walks this time of year and yard work. he has done only a little yard work. He typically downhill skis in the winter. Pt will see January 23 again. Treatment Goals Patient/Caregiver Goals return to skiing, walking, hiking PT-OP-C Subjective Start: 01/05/23 12:54 Freq: Status: Active Protocol: Document 02/09/23 12:50 [facility] (Rec: 02/09/23 13:35 [facility] [id number]) OP-PT Subjective Patient Comments Patient Comments Pt reprots he has been walking around in the house w/o the brace and no inc in pain PT-OP-F Manual Assessment Start: 01/05/23 12:54 Freq: Status: Active Protocol: Document 01/07/23 11:50 [facility] (Rec[facility]07/23 [id number] Manual Assessments Soft Tissue Assessment Soft Tissue Mobility Assessment good healing of scar PT-OP-G Mobility & Gait Start: 01/05/23 12:54 Freq: Status: Active Protocol: Document 01/07/23 11:50 [facility] (Rec: 01/07/23 12:48 [facility] [id number]) OP Gait Assessment Comments Gait Comments Pt amb w/boot on LLE w/dec stride length PT-OP-K Range of Motion Start: 01/05/23 12:54 Freq: Status: Active Protocol: Document 01/07/23 11:50 [facility] (Rec: 01/07/23 12:48 [facility] [id number]) Ankle and Foot Goniometric Range of Motion Ankle and Foot Right Active Dorsiflexion with Knee Flexed 10 Dorsiflexion with Knee Extended 2 Plantarflexion 51 Inversion 20 Eversion 20 Left Active Dorsiflexion with Knee Flexed 5 Dorsiflexion with Knee Extended 10 Plantarflexion 38 Inversion 17 Eversion 9 Comments lacking to neutral in DF positions PT-OP-M Strength Start: 01/05/23 12:54 Freq: Status: Active Protocol: Document 01/07/23 11:50 [facility] (Rec: 01/07/23 12:48 [facility] [id number]) Hip Strength Hip Manual Muscle Testing Right Flexion (L2) 4 Good Extension (S1) 5 Normal Abduction 4+ Good+ Adduction 4- Good- External Rotation 4+ Good+ Internal Rotation 5 Normal Left Flexion (L2) 4- Good- Extension (S1) 4+ Good+ Abduction 4- Good- Adduction 3+ Fair+ External Rotation 4- Good- Internal Rotation 4+ Good+ Knee Strength Knee Manual Muscle Testing Right Flexion (S2) 5 Normal Extension (L3) 5 Normal Left Flexion (S2) 3+ Fair+ Extension (L3) 4- Good- Ankle/Foot Strength Ankle and Foot Manual Muscle Testing Right Dorsiflexion (L4) 5 Normal Plantarflexion (S1) 5 Normal Inversion 5 Normal Eversion (S1) 5 Normal Comments PF tested seated Left Comments n/t d/t restrictions PT-OP-Q Treatments Start: 01/05/23 12:54 Freq: Status: Active Protocol: Document 02/09/23 12:50 [facility] (Rec: 02/09/23 13:35 [facility] [id number]) Therapeutic Exercises Standing Exercises lunges Side bilateral Reps/Minutes 12 Comments cues for foot and knee position hip hike Side bilateral Reps/Minutes 10 Comments on step calf stretch Standing Exercise Name 1. gastroc 2. soleus Side left Reps/Minutes 30 sec Comments fwd lean squats Standing Exercise Name to heel raises Side bilateral Reps/Minutes 10 Comments cues for knees PF Standing Exercise Name DL on step Side bilateral Reps/Minutes 15 DF Standing Exercise Name DL Side bilateral Reps/Minutes 10 Comments cues to not lean back w/hips Gait Training Gait Activity gait at wall Comments B post dep w/LE pattern L 10 sec x3; R 10 sec wt shift, rocking Comments in mirror w/fwd steps x5 min Manual Therapy Treatment Soft Tissue Mobilization calf Body Location L achilles & plantar fasica Mobilization Type Myofascial Release,Rolling, Strumming,Other Intensity/Depth Moderate Body Position Supine Comments w/APs Joint Mobilizations mid foot Comments L navicular med FM L cuneform 1 med FM tibfib Joint PA FM fib talus Joint L Direction PA and AP FM PT-OP-R Modalities Start: 01/05/23 12:54 Freq: Status: Active Protocol: Document 01/09/23 15:15 [facility] (Rec: 01/09/23 16:45 [facility] [id number]) Hot Pack/Cold Pack Treatment Ice Massage Location L ankle Patient Position Hooklying Treatment Duration (minutes) 5 Patient Tolerance Good Comments focus on visible swelling around medial malleolus, and along scar - positive feedback response. PT-OP-T Assessment and Plan Start: 01/05/23 12:54 Freq: Status: Active Protocol: Document 02/09/23 12:50 [facility] (Rec: 02/09/23 13:35 [facility] [id number]) Physical Therapy Assessment Goals LEFS Impairment 42/80 Short Term Goal (STG) Pt will improve score to at least 52/80 to show improved fucntional ability. STG Duration 02/23/23 Penitentiary Goal (LTG) Pt will improve score to at least 65/80 to show improved fucntional ability. LTG Duration 03/29/23 activities Short Term Goal (STG) Pt will be able to start short walks w/o boot without inc pain greater than 3/10 STG Duration 02/25/23 Penitentiary Goal (LTG) Pt will be able to return to hiking on uneven terrain w/o pain greater than 1/10. LTG Duration 04/01/23 ROM Short Term Goal (STG) Pt will imrpove DF to neutral in both knee ext and flex position to imrpove pt gait mechanics and functional ablity. STG Duration 02/14/23 Utilities Operator Goal (LTG) Pt will imrpove DF to 5 deg knee ext and 10 deg in knee flex position to imrpove pt gait mechanics and functional ablity. LTG Duration 04/01/23 Assessment Summary Assessment Pt had improved gait after cues wth this. He is improving in balance and was able to do a couple seconds in SLS on LLE. Physical Therapy Plan Frequency and Duration Frequency of Treatment 1-2x/wk Duration of treatment (weeks) 12 Plan of Care Start Date 01/07/23 Plan of Care End Date 04/01/23 Next Visit Focus/Plan Next Note Type Progress Note Next Visit Plan cont to work WB in brace w/ balance and strength exercises
--- NOTE | 2023-02-23 13:07 | PT.OTN ---
Current Diagnoses Strain of left Achilles tendon, initial encounter (02/23/23) Strain of left Achilles tendon, subsequent encounter (02/23/23) Encounter for other orthopedic aftercare (02/23/23) Physical Therapy Treatment Note PT-OP-A Visit Information Start: 01/05/23 12:54 Freq: Status: Active Protocol: Document 02/23/23 11:43 [facility] (Rec: 02/23/23 13:07 [facility] [id number]) Out-Patient Physical Therapy Visit Information Visit Information Visit Type Progress Note Visit Note 08/26 Visit Start Time 11:35 Visit Stop Time 12:15 Total Visit Minutes 40 Visit Number 10 Number of PARTNER MANAGEMENT CONSULTANT Visits 0 PT-OP-B Current Condition Start: 01/05/23 12:54 Freq: Status: Active Protocol: Document 01/07/23 11:50 [facility] (Rec: 01/07/23 12:48 [facility] [id number]) Current Condition History of Current Condition Onset Date 11/28/22 Current Complaints L achilles repair History of Current Condition Pt reprots he started WBAT for about 1 week. on thursday he took one of the 3 heel lifts out and was given clearance to take one out a week. He has been using the knee scooter for longer distances. He has been doing walking around the house some w/o AD and some w/ crutches. Pt has experienced some L glute pain. He does have history of some LBP that doesn't bother him much. Pt was snow cat skiing in on Sep 28and caught his tip under soemthin and was thrown. he was in his ski boot. He didn't know he ruputured his achilles until later. Pt had secondary repair of L achilles tendon w/proximal release on 11/28/22. No history of achilles issues. He idd have a Lisfranc fracture about 12 years ago and had surgery w/ hardware taken out a year or 2 after the repair. Pt has one flight of stairs at home which he has done okay on. He typically would do a bit of hiking and go for walks this time of year and yard work. he has done only a little yard work. He typically downhill skis in the winter. Pt will see January 23 again. Treatment Goals Patient/Caregiver Goals return to skiing, walking, hiking PT-OP-C Subjective Start: 01/05/23 12:54 Freq: Status: Active Protocol: Document 02/23/23 11:43 [facility] (Rec: 02/23/23 13:07 [facility] [id number]) OP-PT Subjective Patient Comments Patient Comments pt repors he has been walking up to about a mile. Some mild burning at lat ankle but wouldnt call it pain. Wants to know if doing hip hikes right Patient Questionnaires Lower Extremity Functional Scale LEFS Score 64/80 PT-OP-F Manual Assessment Start: 01/05/23 12:54 Freq: Status: Active Protocol: Document 01/07/23 11:50 [facility] (Rec: 01/07/23 12:48 [facility] [id number]) Manual Assessments Soft Tissue Assessment Soft Tissue Mobility Assessment good healing of scar PT-OP-G Mobility & Gait Start: 01/05/23 12:54 Freq: Status: Active Protocol: Document 01/07/23 11:50 [facility] (Rec: 01/07/23 12:48 [facility] [id number]) OP Gait Assessment Comments Gait Comments Pt amb w/boot on LLE w/dec stride length PT-OP-K Range of Motion Start: 01/05/23 12:54 Freq: Status: Active Protocol: Document 02/23/23 11:43 [facility] (Rec: 02/23/23 13:07 [facility] [id number]) Ankle and Foot Goniometric Range of Motion Ankle and Foot Left Active Dorsiflexion with Knee Flexed 10 Dorsiflexion with Knee Extended 3 Plantarflexion 40 Inversion 24 Eversion 14 PT-OP-M Strength Start: 01/05/23 12:54 Freq: Status: Active Protocol: Document 02/23/23 11:43 [facility] (Rec: 02/23/23 13:07 [facility] [id number]) Hip Strength Hip Manual Muscle Testing Right Flexion (L2) 5 Normal Extension (S1) 5 Normal Abduction 5 Normal Adduction 5 Normal External Rotation 5 Normal Internal Rotation 5 Normal Left Flexion (L2) 5 Normal Extension (S1) 5 Normal Abduction 5 Normal Adduction 4 Good External Rotation 5 Normal Internal Rotation 5 Normal Knee Strength Knee Manual Muscle Testing Right Flexion (S2) 5 Normal Extension (L3) 5 Normal Left Flexion (S2) 5 Normal Extension (L3) 5 Normal Ankle/Foot Strength Ankle and Foot Manual Muscle Testing Right Dorsiflexion (L4) 5 Normal Plantarflexion (S1) 5 Normal Inversion 5 Normal Eversion (S1) 5 Normal Comments able to do SL heel raises Left Dorsiflexion (L4) 4+ Good+ Plantarflexion (S1) 2+ Poor+ Inversion 5 Normal Eversion (S1) 5 Normal Comments unable to do SL heel raise PT-OP-Q Treatments Start: 01/05/23 12:54 Freq: Status: Active Protocol: Document 02/23/23 11:43 [facility] (Rec: 02/23/23 13:07 [facility] [id number]) Gym Equipment Shuttle Balance red clips Comments fwd & side: WBOS & NBOS fwd: staggered stance Therapeutic Exercises Sidelying Exercises add Side left Reps/Minutes 5 Comments encouraged to do 15 a few times a week Standing Exercises hip hike Side left Reps/Minutes 10 Comments on step step down Side left Equipment Used 6 in step Reps/Minutes 12 Comments control PF Standing Exercise Name DL on step Side bilateral Reps/Minutes 15 Comments cued for more wt in LLE Manual Therapy Treatment Soft Tissue Mobilization ant Body Location ant tib and ant foot/leg fascia Mobilization Type Myofascial Release,Sustained Pressure Comments w/APs calf Body Location L achilles & soleus Mobilization Type Myofascial Release,Rolling, Strumming,Other Intensity/Depth Moderate Body Position Supine Comments w/APs Joint Mobilizations tibfib Joint distal L Comments PA fib FM AP tib FM talus Joint L Direction PA FM Neuro Re-Education Treatment Balance Activities SLS Details B trials Comments max 4 sec L; >10 sec on R-no shoes PT-OP-R Modalities Start: 01/05/23 12:54 Freq: Status: Active Protocol: Document 01/09/23 15:15 [facility] (Rec: 01/09/23 16:45 [facility] [id number]) Hot Pack/Cold Pack Treatment Ice Massage Location L ankle Patient Position Hooklying Treatment Duration (minutes) 5 Patient Tolerance Good Comments focus on visible swelling around medial malleolus, and along scar - positive feedback response. PT-OP-T Assessment and Plan Start: 01/05/23 12:54 Freq: Status: Active Protocol: Document 02/23/23 11:43 [facility] (Rec: 02/23/23 13:07 [facility] [id number]) Physical Therapy Assessment Goals LEFS Impairment 42/80 Short Term Goal (STG) Pt will improve score to at least 52/80 to show improved fucntional ability. STG Duration achieved Half-Way Goal (LTG) Pt will improve score to at least 65/80 to show improved fucntional ability. 710-64/80 LTG Duration 03/29/23 activities Short Term Goal (STG) Pt will be able to start short walks w/o boot without inc pain greater than 3/10 STG Duration achieved 02/23 Half-Way Goal (LTG) Pt will be able to return to hiking on uneven terrain w/o pain greater than 1/10. 02/23-no uneven terrainyet LTG Duration 04/01/23 ROM Short Term Goal (STG) Pt will imrpove DF to neutral in both knee ext and flex position to imrpove pt gait mechanics and functional ablity. STG Duration achieved 02/23 Preventive Medicine Officer Goal (LTG) Pt will imrpove DF to 5 deg knee ext and 10 deg in knee flex position to imrpove pt gait mechanics and functional ablity. 02/23-met in knee flex; limited by 2 deg in knee ext LTG Duration 04/01/23 Assessment Summary Assessment Pt is making excellent progress w/PT and has much improved ROM of ankle along w/ improved LE strength with limit mostly in PF only. He does show some add weakness and was encourage to work on this over the next coupel of weeks. He has limited balance still especially when out of his brace or his shoe so will need to cont PT to work ont his. Physical Therapy Plan Frequency and Duration Frequency of Treatment 1-2x/wk Duration of treatment (weeks) 12 Plan of Care Start Date 01/07/23 Plan of Care End Date 04/01/23 Therapeutic Interventions Therapeutic Interventions Balance Training,Gait Training ,Home Exercise Program,Joint Mobilizations,Manual Therapy, Neuromuscular Re-education, Orthotic/Prosthetic Management ,Patient/Caregiver Education, Self-Care/Home Management,Soft Tissue Mobilization,Taping, Therapeutic Activities, Therapeutic Exercises Modalities Cold Pack/Ice Massage,Electric Stimulation,Hot Packs, Infrared Therapy,Iontophoresis ,Ultrasound Next Visit Focus/Plan Next Note Type Treatment Note Next Visit Plan take off brace and work on balance and strength activities to improve stability, cont to work PF strength
--- NOTE | 2023-03-02 18:49 | PT.OTN ---
Addendum entered and electronically signed by Nakia Ferrer PT 03/03/23 10:58: PT direct supervision and direction to PT student. Original Note: Current Diagnoses Strain of left Achilles tendon, initial encounter (03/02/23) Strain of left Achilles tendon, subsequent encounter (03/02/23) Encounter for other orthopedic aftercare (03/02/23) Physical Therapy Treatment Note PT-OP-A Visit Information Start: 01/05/23 12:54 Freq: Status: Active Protocol: Document 03/02/23 09:57 (Rec: 03/02/23 10:23 [id number]) Out-Patient Physical Therapy Visit Information Visit Information Visit Type Treatment Note Visit Start Time 09:04 Visit Stop Time 09:51 Total Visit Minutes 47 Visit Number 11 Number of CROSS CUT SAW OPERATOR Visits 0 PT-OP-B Current Condition Start: 01/05/23 12:54 Freq: Status: Active Protocol: Document 01/07/23 11:50 [facility] (Rec: 01/07/23 12:48 [facility] [id number]) Current Condition History of Current Condition Onset Date 11/28/22 Current Complaints L achilles repair History of Current Condition Pt reprots he started WBAT for about 1 week. on thursday he took one of the 3 heel lifts out and was given clearance to take one out a week. He has been using the knee scooter for longer distances. He has been doing walking around the house some w/o AD and some w/ crutches. Pt has experienced some L glute pain. He does have history of some LBP that doesn't bother him much. Pt was snow cat skiing in on Sep 28and caught his tip under soemthin and was thrown. he was in his ski boot. He didn't know he ruputured his achilles until later. Pt had secondary repair of L achilles tendon w/proximal release on 11/28/22. No history of achilles issues. He idd have a Lisfranc fracture about 12 years ago and had surgery w/ hardware taken out a year or 2 after the repair. Pt has one flight of stairs at home which he has done okay on. He typically would do a bit of hiking and go for walks this time of year and yard work. he has done only a little yard work. He typically downhill skis in the winter. Pt will see January 23 again. Treatment Goals Patient/Caregiver Goals return to skiing, walking, hiking PT-OP-C Subjective Start: 01/05/23 12:54 Freq: Status: Active Protocol: Document 03/02/23 09:57 [facility] (Rec: 03/02/23 10:23 [facility] [id number]) OP-PT Subjective Patient Comments Patient Comments Pt notes no new changes with the ankle. His L knee has been bothering him more than the R . Still not able to PF the L. PT-OP-F Manual Assessment Start: 01/05/23 12:54 Freq: Status: Active Protocol: Document 01/07/23 11:50 [facility] (Rec: 01/07/23 12:48 [facility] [id number]) Manual Assessments Soft Tissue Assessment Soft Tissue Mobility Assessment good healing of scar PT-OP-G Mobility & Gait Start: 01/05/23 12:54 Freq: Status: Active Protocol: Document 01/07/23 11:50 [facility] (Rec: 01/07/23 12:48 [facility] [id number]) OP Gait Assessment Comments Gait Comments Pt amb w/boot on LLE w/dec stride length PT-OP-K Range of Motion Start: 01/05/23 12:54 Freq: Status: Active Protocol: Document 02/23/23 11:43 [facility] (Rec: 02/23/23 13:07 [facility] [id number]) Ankle and Foot Goniometric Range of Motion Ankle and Foot Left Active Dorsiflexion with Knee Flexed 10 Dorsiflexion with Knee Extended 3 Plantarflexion 40 Inversion 24 Eversion 14 PT-OP-M Strength Start: 01/05/23 12:54 Freq: Status: Active Protocol: Document 02/23/23 11:43 [facility] (Rec: 02/23/23 13:07 [facility] [id number]) Hip Strength Hip Manual Muscle Testing Right Flexion (L2) 5 Normal Extension (S1) 5 Normal Abduction 5 Normal Adduction 5 Normal External Rotation 5 Normal Internal Rotation 5 Normal Left Flexion (L2) 5 Normal Extension (S1) 5 Normal Abduction 5 Normal Adduction 4 Good External Rotation 5 Normal Internal Rotation 5 Normal Knee Strength Knee Manual Muscle Testing Right Flexion (S2) 5 Normal Extension (L3) 5 Normal Left Flexion (S2) 5 Normal Extension (L3) 5 Normal Ankle/Foot Strength Ankle and Foot Manual Muscle Testing Right Dorsiflexion (L4) 5 Normal Plantarflexion (S1) 5 Normal Inversion 5 Normal Eversion (S1) 5 Normal Comments able to do SL heel raises Left Dorsiflexion (L4) 4+ Good+ Plantarflexion (S1) 2+ Poor+ Inversion 5 Normal Eversion (S1) 5 Normal Comments unable to do SL heel raise PT-OP-Q Treatments Start: 01/05/23 12:54 Freq: Status: Active Protocol: Document 03/02/23 09:57 (Rec: 03/02/23 10:23 [id number]) Gym Equipment Shuttle Recovery HR Details Max cues for positioning;DL and SL Heel Raises, eecentric Resistance #25 DL/SL, #37 Eecentric 2 up 1 down Reps/Time 25ea Therapeutic Exercises Sitting Exercises Soleus Sitting Exercise Name seated with wt on L knee PF and raise heel Side left Equipment Used 2x#10 ankle wts Reps/Minutes 15x Comments Cues for not curling L toe when PF Standing Exercises PF Standing Exercise Name DL on step, and wt shifting tandem stance w/ PF heel raise Side bilateral Reps/Minutes 15ea Comments cued for more wt in LLE Manual Therapy Treatment Soft Tissue Mobilization Sole of foot Body Location L sole Mobilization Type Myofascial Release,Strumming, Sustained Pressure Intensity/Depth Moderate Body Position Supine Comments along flexors/abd of big toe and plantar fascia Joint Mobilizations MTP Joint L 1 Direction AP, PA gentle Grade II Body Position Supine Comments gentle manual and distraction Neuro Re-Education Treatment Balance Activities foam Details Tpads (like stepping stones) Equipment various tpads Reps/Duration 8x Comments walked across different tpads like stepping stones w/ no shoes. Next to rail and DIRECTOR OF APPLICATION DEVELOPMENT as needed. Self-Care/Home Management Treatment Education Other Education Self manual w/ rolling pin to calf PT-OP-R Modalities Start: 01/05/23 12:54 Freq: Status: Active Protocol: Document 01/09/23 15:15 [facility] (Rec: 01/09/23 16:45 NB [id number]) Hot Pack/Cold Pack Treatment Ice Massage Location L ankle Patient Position Hooklying Treatment Duration (minutes) 5 Patient Tolerance Good Comments focus on visible swelling around medial malleolus, and along scar - positive feedback response. PT-OP-T Assessment and Plan Start: 01/05/23 12:54 Freq: Status: Active Protocol: Document 03/02/23 09:57 (Rec: 03/02/23 10:23 [id number]) Physical Therapy Assessment Goals LEFS Impairment 42/80 Short Term Goal (STG) Pt will improve score to at least 52/80 to show improved fucntional ability. STG Duration achieved Shelter Goal (LTG) Pt will improve score to at least 65/80 to show improved fucntional ability. 7/10-64/80 LTG Duration 03/29/23 activities Short Term Goal (STG) Pt will be able to start short walks w/o boot without inc pain greater than 3/10 STG Duration achieved 7 Director Validation Goal (LTG) Pt will be able to return to hiking on uneven terrain w/o pain greater than 1/10. 7/10-no uneven terrainyet LTG Duration 04/01/23 ROM Short Term Goal (STG) Pt will imrpove DF to neutral in both knee ext and flex position to imrpove pt gait mechanics and functional ablity. STG Duration achieved 02/23 Director Validation Goal (LTG) Pt will imrpove DF to 5 deg knee ext and 10 deg in knee flex position to imrpove pt gait mechanics and functional ablity. 7/10-met in knee flex; limited by 2 deg in knee ext LTG Duration 04/01/23 Assessment Summary Assessment pt is still lack PF ability. L toe mobility improved following manual, but he still curls his L toe when trying to PF. He is still wobbly when balance is challenged in no shoes. Rail and DIRECTOR OF APPLICATION DEVELOPMENT were available as needed. Max cues were needed for positioning and movement of feet when doing heel raises on shuttle especially for eecentric control. Physical Therapy Plan Frequency and Duration Frequency of Treatment 1-2x/wk Duration of treatment (weeks) 12 Plan of Care Start Date 01/07/23 Plan of Care End Date 04/01/23 Next Visit Focus/Plan Next Note Type Treatment Note Next Visit Plan work on balance and strength activities to improve stability, cont to work PF strength. Manual: assess Post calf and Flexor hallucis longus.
--- NOTE | 2023-03-17 18:18 | PT.OTN ---
Current Diagnoses Strain of left Achilles tendon, initial encounter (03/17/23) Strain of left Achilles tendon, subsequent encounter (03/17/23) Encounter for other orthopedic aftercare (03/17/23) Physical Therapy Treatment Note PT-OP-A Visit Information Start: 01/05/23 12:54 Freq: Status: Active Protocol: Document 03/17/23 16:26 [facility] (Rec: 03/17/23 18:18 [facility] [id number]) Out-Patient Physical Therapy Visit Information Visit Information Visit Type Treatment Note Visit Start Time 16:51 Visit Stop Time 17:31 Total Visit Minutes 40 Visit Number 12 Number of PREPARER Visits 0 PT-OP-B Current Condition Start: 01/05/23 12:54 Freq: Status: Active Protocol: Document 01/07/23 11:50 [facility] (Rec: 01/07/23 12:48 [facility] [id number]) Current Condition History of Current Condition Onset Date 11/28/22 Current Complaints L achilles repair History of Current Condition Pt reprots he started WBAT for about 1 week. on thursday he took one of the 3 heel lifts out and was given clearance to take one out a week. He has been using the knee scooter for longer distances. He has been doing walking around the house some w/o AD and some w/ crutches. Pt has experienced some L glute pain. He does have history of some LBP that doesn't bother him much. Pt was snow cat skiing in on Sep 28and caught his tip under soemthin and was thrown. he was in his ski boot. He didn't know he ruputured his achilles until later. Pt had secondary repair of L achilles tendon w/proximal release on 11/28/22. No history of achilles issues. He idd have a Lisfranc fracture about 12 years ago and had surgery w/ hardware taken out a year or 2 after the repair. Pt has one flight of stairs at home which he has done okay on. He typically would do a bit of hiking and go for walks this time of year and yard work. he has done only a little yard work. He typically downhill skis in the winter. Pt will see January 23 again. Treatment Goals Patient/Caregiver Goals return to skiing, walking, hiking PT-OP-C Subjective Start: 01/05/23 12:54 Freq: Status: Active Protocol: Document 03/17/23 16:26 [facility] (Rec: 03/17/23 18:18 [facility] [id number]) OP-PT Subjective Patient Comments Patient Comments Pt reports he saw MD and was cleared by MD to do everything . He has biked and golfed w/o issues. Patient Questionnaires Lower Extremity Functional Scale LEFS Score 69/80 PT-OP-F Manual Assessment Start: 01/05/23 12:54 Freq: Status: Active Protocol: Document 01/07/23 11:50 [facility] (Rec: 01/07/23 12:48 [facility] [id number]) Manual Assessments Soft Tissue Assessment Soft Tissue Mobility Assessment good healing of scar PT-OP-G Mobility & Gait Start: 01/05/23 12:54 Freq: Status: Active Protocol: Document 01/07/23 11:50 [facility] (Rec: 01/07/23 12:48 [facility] [id number]) OP Gait Assessment Comments Gait Comments Pt amb w/boot on LLE w/dec stride length PT-OP-K Range of Motion Start: 01/05/23 12:54 Freq: Status: Active Protocol: Document 03/17/23 16:26 [facility] (Rec: 03/17/23 18:18 [facility] [id number]) Ankle and Foot Goniometric Range of Motion Ankle and Foot Left Active Dorsiflexion with Knee Flexed 10 Dorsiflexion with Knee Extended 5 Plantarflexion 51 Inversion 25 Eversion 21 PT-OP-M Strength Start: 01/05/23 12:54 Freq: Status: Active Protocol: Document 03/17/23 16:26 [facility] (Rec: 03/17/23 18:18 [facility] [id number]) Hip Strength Hip Manual Muscle Testing Right Flexion (L2) 5 Normal Extension (S1) 5 Normal Abduction 5 Normal Adduction 5 Normal External Rotation 5 Normal Internal Rotation 5 Normal Left Flexion (L2) 4+ Good+ Extension (S1) 5 Normal Abduction 5 Normal Adduction 5 Normal External Rotation 4+ Good+ Internal Rotation 5 Normal Knee Strength Knee Manual Muscle Testing Right Flexion (S2) 5 Normal Extension (L3) 5 Normal Left Flexion (S2) 5 Normal Extension (L3) 5 Normal Ankle/Foot Strength Ankle and Foot Manual Muscle Testing Right Dorsiflexion (L4) 5 Normal Plantarflexion (S1) 5 Normal Inversion 5 Normal Eversion (S1) 5 Normal Comments able to do SL heel raises Left Dorsiflexion (L4) 5 Normal Plantarflexion (S1) 2+ Poor+ Inversion 5 Normal Eversion (S1) 5 Normal Comments unable to do SL heel raise PT-OP-Q Treatments Start: 01/05/23 12:54 Freq: Status: Active Protocol: Document 03/17/23 16:26 [facility] (Rec: 03/17/23 18:18 [facility] [id number]) Therapeutic Exercises Supine Exercises core Supine Exercise Name DL press w/DF Side bilateral Reps/Minutes 2x30 sec bridge Supine Exercise Name w/alt march Side bilateral Reps/Minutes 15 Standing Exercises lunges Standing Exercise Name lat lunge to L w/PF Reps/Minutes 15 calf stretch Standing Exercise Name stair Side left Reps/Minutes 30 sec x2 Comments fwd lean squats Standing Exercise Name w/heel raises Side bilateral Reps/Minutes 15 PF Standing Exercise Name DL on step Side bilateral Equipment Used stair Reps/Minutes 20 Comments cued for more wt in LLE Manual Therapy Treatment Soft Tissue Mobilization calf Body Location L achilles & soleus Mobilization Type Myofascial Release,Rolling, Strumming,Other Intensity/Depth Moderate Body Position Prone Comments w/APs PT-OP-R Modalities Start: 01/05/23 12:54 Freq: Status: Active Protocol: Document 01/09/23 15:15 [facility] (Rec: 01/09/23 16:45 NB [id number]) Hot Pack/Cold Pack Treatment Ice Massage Location L ankle Patient Position Hooklying Treatment Duration (minutes) 5 Patient Tolerance Good Comments focus on visible swelling around medial malleolus, and along scar - positive feedback response. PT-OP-T Assessment and Plan Start: 01/05/23 12:54 Freq: Status: Active Protocol: Document 03/17/23 16:26 [facility] (Rec: 03/17/23 18:18 [facility] [id number]) Physical Therapy Assessment Goals LEFS Impairment 42/80 Short Term Goal (STG) Pt will improve score to at least 52/80 to show improved fucntional ability. STG Duration achieved Fdc Goal (LTG) Pt will improve score to at least 65/80 to show improved fucntional ability. 7/10-64/80 LTG Duration achieved to 69/80 activities Short Term Goal (STG) Pt will be able to start short walks w/o boot without inc pain greater than 3/10 STG Duration achieved 02/23 Fdc Goal (LTG) Pt will be able to return to hiking on uneven terrain w/o pain greater than 1/10. 7-no uneven terrainyet LTG Duration achieved 1/10 w/3 mile hike ROM Short Term Goal (STG) Pt will imrpove DF to neutral in both knee ext and flex position to imrpove pt gait mechanics and functional ablity. STG Duration achieved 02/23 Fdc Goal (LTG) Pt will imrpove DF to 5 deg knee ext and 10 deg in knee flex position to imrpove pt gait mechanics and functional ablity. 02/23-met in knee flex; limited by 2 deg in knee ext LTG Duration achieved 03/17 Assessment Summary Assessment Pt is doing well with his strength and mobility and has returned to typical activities . He still has calf weakenss which limits his activity but will cnt HEP. Adjusted HEP and spent more time edu pt re: which exercises to cont Physical Therapy Plan Discharge Physical Therapy Discharge Reasons Goals Met
== END 2023-03-18 12:32 | disposition home or self-care (01) ==
LOC: PHYS 16:45
PROVIDERS: Absent Provider Orthopaedic Surgery; Family Provider Internal Medicine; PCP Internal Medicine
DX: Z47.89 Encounter for other orthopedic aftercare (principal); S86.012A Strain of left Achilles tendon, initial encounter; S86.012D Strain of left Achilles tendon, subsequent encounter
CPT/HCPCS: 97110; 97112; 97116; 97140; 97162

== ENCOUNTER 2024-10-27 09:45 | Outpatient (RCR) | payer MEDICARE, OTHER, SELFPAY ==
--- NOTE | 2024-09-12 15:52 | PT.OIE ---
Current Diagnoses Bilateral primary osteoarthritis of knee (09/12/24) Stiffness of right knee, not elsewhere classified (09/12/24) Stiffness of left knee, not elsewhere classified (09/12/24) Unsteadiness on feet (09/12/24) Other abnormalities of gait and mobility (09/12/24) Weakness (09/12/24) Visit Care Team Role Provider Type Rc Harris MD Attending Provider Non-Staff Family Provider Primary Care Provider Referring Provider Specialty: Medical Address: [address] [place] [address], [id number] Email: Physical Therapy Initial Evaluation PT-OP-A Visit Information Start: 09/12/24 14:23 Freq: Status: Active Protocol: Document 09/12/24 14:24 NM (Rec: 09/12/24 15:51 NM [id number]) Out-Patient Physical Therapy Visit Information Visit Information Visit Type Initial Evaluation Visit Note KX after 19 visits Visit Start Time 14:31 Visit Stop Time 15:15 Visit Number 1 Evaluation Information Evaluation Date 09/12/24 Precautions Precautions L achilles repair, L lisfranc fracture and repair hx PT-OP-B Current Condition Start: 09/12/24 14:23 Freq: Status: Active Protocol: Document 09/12/24 14:24 NM (Rec: 09/12/24 15:51 NM [id number]) Current Condition History of Current Condition Onset Date several years History of Current Condition Pt presents to clinic with B knee pain, has OA. 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 He has had cortisone injections several weeks, B knees; reports has helped. He has had imaging in 2017, recently. Has not seen an orthopedist for condition for this round. Hx of L Achilles and rupture 2-3 years ago, reports still bothers him a little bit, reports soreness following increased activity. Pt reports pain worse on R side than L. Wears braces on his knee during skiing. Pt reports that lives on uneven surfaces, so walking especially if carrying heavy objects. He reports minimal pain with stairs unless making multiple trips. Hx of fall off ladder 2023, no other falls. No knee buckling, knee giving out, clicking, popping, locking. Skiis 1-2 weeks/ month. Also hx of L lisfranc fracture w/ surgery 10 years, very stiff Treatment Goals Patient/Caregiver Goals learn how to do a program to help especially if having a future replacements PT-OP-C Subjective Start: 09/12/24 14:23 Freq: Status: Active Protocol: Document 09/12/24 14:24 NM (Rec: 09/12/24 15:51 NM [id number]) OP-PT Subjective Patient Comments Patient Comments Pt consents to participate in PT evaluation Patient Questionnaires Lower Extremity Functional Scale LEFS Score 65/80 OP-PT Pain Assessment Location L knee Pain Location Details medial side, joint line Intensity 2 Scale Used Numeric (0 - 10) Description Aching,Dull,Sharp Pain Aggravating Factors Standing,Walking,Stair Climbing Other Pain Aggravating Factors twisting, jolting, uneven surfaces Pain Alleviating Factors Medication R knee Pain Location Details medial side, joint line Intensity 4 Scale Used Numeric (0 - 10) Description Aching,Dull,Sharp Pain Aggravating Factors Standing,Walking,Stair Climbing Other Pain Aggravating Factors twisting, jolting, uneven surfaces Pain Alleviating Factors Medication Other Pain Alleviating Factors celebrix only if skiing, voltaren PT-OP-E Functional Tests Start: 09/12/24 14:23 Freq: Status: Active Protocol: Document 09/12/24 14:24 NM (Rec: 09/12/24 15:51 NM [id number]) Functional Tests Squat Test Score 5 Comments demos decreased hip hinge, ankle mobility PT-OP-F Manual Assessment Start: 09/12/24 14:23 Freq: Status: Active Protocol: Document 09/12/24 14:24 NM (Rec: 09/12/24 15:51 NM [id number]) Manual Assessments Soft Tissue Assessment Soft Tissue Mobility Assessment increased restrictions of B hamstrings R>L, L achilles/ calf more restricted than R Joint Mobility Assessment Joint Mobility Assessment decreased R knee jt mobility, decreased L foot mobility PT-OP-J Posture/Palpation/Skin Start: 09/12/24 14:23 Freq: Status: Active Protocol: Document 09/12/24 14:24 NM (Rec: 09/12/24 15:51 NM [id number]) Palpation Assessment Location L knee Palpation Details No tenderness to palpation R knee Palpation Details Mild swelling compared to LLE especially behind posterolateral knee No tenderness to palpation PT-OP-K Range of Motion Start: 09/12/24 14:23 Freq: Status: Active Protocol: Document 09/12/24 14:24 NM (Rec: 09/12/24 15:51 NM [id number]) Knee Goniometric Range of Motion Knee Right Flexion Active (degrees) 125 Extension Active (degrees) 5 Left Flexion Active (degrees) 130 Extension Active (degrees) 0 PT-OP-L Special Tests Start: 09/12/24 14:23 Freq: Status: Active Protocol: Document 09/12/24 14:24 NM (Rec: 09/12/24 15:51 NM [id number]) Special Tests Knee Special Tests Varus Test Results - Comments 0 and 25 deg, B Valgus Test Results - Comments 0 and 25 deg, B Yuri Test Test Results - Comments B PT-OP-M Strength Start: 09/12/24 14:23 Freq: Status: Active Protocol: Document 09/12/24 14:24 NM (Rec: 09/12/24 15:51 NM [id number]) Hip Strength Hip Manual Muscle Testing Right Flexion (L2) 4 Good Extension (S1) 4- Good- Abduction 4- Good- Adduction 4 Good External Rotation 4 Good Internal Rotation 4 Good Left Flexion (L2) 4 Good Extension (S1) 4 Good Abduction 4- Good- Adduction 4 Good External Rotation 4 Good Internal Rotation 4 Good Knee Strength Knee Manual Muscle Testing Right Flexion (S2) 4- Good- Extension (L3) 4- Good- Left Flexion (S2) 4 Good Extension (L3) 4- Good- Ankle/Foot Strength Ankle and Foot Manual Muscle Testing Right Dorsiflexion (L4) 4 Good Inversion 4 Good Eversion (S1) 4 Good Left Dorsiflexion (L4) 4 Good Inversion 4 Good Eversion (S1) 4 Good PT-OP-Q Treatments Start: 09/12/24 14:23 Freq: Status: Active Protocol: Document 09/12/24 14:24 NM (Rec: 09/12/24 15:51 NM [id number]) Therapeutic Exercises Supine Exercises hamstring stretch Supine Exercise Name HEP Side bilateral Equipment Used c/ gait belt Reps/Minutes 60 ea Comments cued for form mounika stretch Side bilateral Reps/Minutes 60 ea Comments less on R than L Standing Exercises TKE Side bilateral Resistance level 2 band Equipment Used hand support on plinth, PT holding band Reps/Minutes 15 ea Comments increased time needed; edu to tie to supported surface Self-Care/Home Management Treatment Education Other Education Education on use of stationary bike vs elliptical for cardio depending on pain levels. Ok to use elliptical as long as does not make knee pain feel worse. Would recommend that pt does not use elliptical following skiing PT-OP-T Assessment and Plan Start: 09/12/24 14:23 Freq: Status: Active Protocol: Document 09/12/24 14:24 NM (Rec: 09/12/24 15:51 NM [id number]) Physical Therapy Assessment Rehab Potential Rehabilitation Potential Excellent Evaluation Complexity Number of Personal Factors/Comorbidities 3 or More Number of Body Systems Impaired 4 or More Clinical Presentation at Evaluation Stable Impairments Impairments Activity Tolerance,Balance, Functional Activities, Functional Mobility,Gait, Integument,Pain,Posture,ROM, Soft Tissue Mobility,Strength, Transfers Other Concerns Age Related Concerns PMH: diabetes II, hearing problems L ear, joint replacement (L total shoulder) , kidney stones, neuropathy, L achilles repair Barriers to Rehabilitation Pt is planning to have topical home procedure to treat skin cancer, will not be able to attend PT for 2-3 weeks. PT educated pt to get medical clearance prior to attending again Goals Four Impairment B hip ext/abd strength decreased, quad strength; squat challenging Short Term Goal (STG) Pt will be able to perform at least 10 B squats without compensation or knee pain for improved strength during transfers and strength for skiing stability STG Duration 5 weeks Animal Surgeon Goal (LTG) Pt will improve B hip extensory/abductor and quad strength to at least 4/5 MMT or better to demonstrate improved stability for skiing LTG Duration 8 weeks Three Impairment R knee ROM lacking 5 deg ext, 125 deg flex Animal Surgeon Goal (LTG) Pt will improve R knee extension ROM to <3 deg in order to demonstrate increased TKE for gait and SLS LTG Duration 8 weeks Two Impairment SLS impaired Penitentiary Goal (LTG) Pt will be able to perform single leg stance for at least 10 seconds without increased knee or hip pain to improve stability during gait and skiing LTG Duration 8 weeks One Impairment not performing HEP for knees Short Term Goal (STG) Pt will report compliance with HEP at least 2x/wk in order to maximize progression with PT STG Duration 4 weeks Animal Surgeon Goal (LTG) Pt will be IND with HEP to transition to maintenance program upon discharge LTG Duration 8 weeks Assessment Summary Assessment Pt is a 74 y.o. presenting with chronic B knee pain. Pt's symptoms are consistent with dx. Right knee pain is slightly more than L side. He also has slight limitations in R knee flex/ext. Pt also demos weakness in R quad, hip extensors/abductors. He has no signs of joint instability but does have knee pain with twisting. Pt is very active and participates frequently in skiing. He has impairments in ROM, strength, balance, pain management, and activity tolerance. PT educated pt on exam findings and plan of care . Initiated HEP for quad strengthening and flexibility. Pt would benefit from skilled PT for progressive knee flexibility and strengthening in order to improve symptom management and ability to participate in recreational activities. Physical Therapy Plan Frequency and Duration Frequency of Treatment 2x/Week Duration of treatment (weeks) 8 Plan of Care Start Date 09/12/24 Plan of Care End Date 11/11/24 Therapeutic Interventions Therapeutic Interventions Balance Training,Gait Training ,Home Exercise Program,Joint Mobilizations,Manual Therapy, Neuromuscular Re-education, Orthotic/Prosthetic Management ,Patient/Caregiver Education, Self-Care/Home Management, Sensory Integration,Soft Tissue Mobilization,Taping, Therapeutic Activities, Therapeutic Exercises Modalities Cold Pack/Ice Massage,Electric Stimulation,Hot Packs, Ultrasound Next Visit Focus/Plan Next Note Type Treatment Note Next Visit Plan trial quad stretch vs hip flexor stretch for skiing review TKE, knee ext strengthening. initiate wall squat vs chair squat hip abductor and glute strengthenign SLS manual therapy: STM, R knee mob
--- NOTE | 2024-09-14 12:23 | PT.OTN ---
Current Diagnoses Bilateral primary osteoarthritis of knee (09/14/24) Stiffness of right knee, not elsewhere classified (09/14/24) Stiffness of left knee, not elsewhere classified (09/14/24) Unsteadiness on feet (09/14/24) Other abnormalities of gait and mobility (09/14/24) Weakness (09/14/24) Physical Therapy Treatment Note PT-OP-A Visit Information Start: 09/12/24 14:23 Freq: Status: Active Protocol: Document 09/14/24 11:32 NM (Rec: 09/14/24 12:22 NM [id number]) Out-Patient Physical Therapy Visit Information Visit Information Visit Type Treatment Note Visit Note KX after 19 visits Juan Visit Start Time 11:33 Visit Stop Time 12:15 Visit Number 2 Evaluation Information Evaluation Date 09/12/24 Precautions Precautions L achilles repair, L lisfranc fracture and repair hx PT-OP-B Current Condition Start: 09/12/24 14:23 Freq: Status: Active Protocol: Document 09/12/24 14:24 NM (Rec: 09/12/24 15:51 NM [id number]) Current Condition History of Current Condition Onset Date several years History of Current Condition Pt presents to clinic with B knee pain, has OA. 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 He has had cortisone injections several weeks, B knees; reports has helped. He has had imaging in 2017, recently. Has not seen an orthopedist for condition for this round. Hx of L Achilles and rupture 2-3 years ago, reports still bothers him a little bit, reports soreness following increased activity. Pt reports pain worse on R side than L. Wears braces on his knee during skiing. Pt reports that lives on uneven surfaces, so walking especially if carrying heavy objects. He reports minimal pain with stairs unless making multiple trips. Hx of fall off ladder 2023, no other falls. No knee buckling, knee giving out, clicking, popping, locking. Skiis 1-2 weeks/ month. Also hx of L lisfranc fracture w/ surgery 10 years, very stiff Treatment Goals Patient/Caregiver Goals learn how to do a program to help especially if having a future replacements PT-OP-C Subjective Start: 09/12/24 14:23 Freq: Status: Active Protocol: Document 09/14/24 11:32 NM (Rec: 09/14/24 12:22 NM [id number]) OP-PT Subjective Patient Comments Patient Comments Pt reports that he is doing well after evaluation. Reports that he does have pain when twisting but in weight bearing . Reports 08/26 B knees. Brought HEP. Did a couple mile walk yesterday, reports achiness PT-OP-D Balance Start: 09/14/24 12:23 Freq: Status: Active Protocol: Document 09/14/24 11:32 NM (Rec: 09/14/24 12:23 NM [id number]) Balance Tests Single Limb Standing Single Limb- Right 12 sec Single Limb- Left 3 sec Tandem Tandem Standing 13 sec PT-OP-E Functional Tests Start: 09/12/24 14:23 Freq: Status: Active Protocol: Document 09/12/24 14:24 NM (Rec: 09/12/24 15:51 NM [id number]) Functional Tests Squat Test Score 5 Comments demos decreased hip hinge, ankle mobility PT-OP-F Manual Assessment Start: 09/12/24 14:23 Freq: Status: Active Protocol: Document 09/12/24 14:24 NM (Rec: 09/12/24 15:51 NM [id number]) Manual Assessments Soft Tissue Assessment Soft Tissue Mobility Assessment increased restrictions of B hamstrings R>L, L achilles/ calf more restricted than R Joint Mobility Assessment Joint Mobility Assessment decreased R knee jt mobility, decreased L foot mobility PT-OP-J Posture/Palpation/Skin Start: 09/12/24 14:23 Freq: Status: Active Protocol: Document 09/12/24 14:24 NM (Rec: 09/12/24 15:51 NM [id number]) Palpation Assessment Location L knee Palpation Details No tenderness to palpation R knee Palpation Details Mild swelling compared to LLE especially behind posterolateral knee No tenderness to palpation PT-OP-K Range of Motion Start: 09/12/24 14:23 Freq: Status: Active Protocol: Document 09/12/24 14:24 NM (Rec: 09/12/24 15:51 NM [id number]) Knee Goniometric Range of Motion Knee Right Flexion Active (degrees) 125 Extension Active (degrees) 5 Left Flexion Active (degrees) 130 Extension Active (degrees) 0 PT-OP-L Special Tests Start: 09/12/24 14:23 Freq: Status: Active Protocol: Document 09/12/24 14:24 NM (Rec: 09/12/24 15:51 NM [id number]) Special Tests Knee Special Tests Varus Test Results - Comments 0 and 25 deg, B Valgus Test Results - Comments 0 and 25 deg, B Yuri Test Test Results - Comments B PT-OP-M Strength Start: 09/12/24 14:23 Freq: Status: Active Protocol: Document 09/12/24 14:24 NM (Rec: 09/12/24 15:51 NM [id number]) Hip Strength Hip Manual Muscle Testing Right Flexion (L2) 4 Good Extension (S1) 4- Good- Abduction 4- Good- Adduction 4 Good External Rotation 4 Good Internal Rotation 4 Good Left Flexion (L2) 4 Good Extension (S1) 4 Good Abduction 4- Good- Adduction 4 Good External Rotation 4 Good Internal Rotation 4 Good Knee Strength Knee Manual Muscle Testing Right Flexion (S2) 4- Good- Extension (L3) 4- Good- Left Flexion (S2) 4 Good Extension (L3) 4- Good- Ankle/Foot Strength Ankle and Foot Manual Muscle Testing Right Dorsiflexion (L4) 4 Good Inversion 4 Good Eversion (S1) 4 Good Left Dorsiflexion (L4) 4 Good Inversion 4 Good Eversion (S1) 4 Good PT-OP-Q Treatments Start: 09/12/24 14:23 Freq: Status: Active Protocol: Document 09/14/24 11:32 NM (Rec: 09/14/24 12:22 NM [id number]) Therapeutic Exercises Supine Exercises SLR Side bilateral Equipment Used c/ quad set Reps/Minutes 10 ea Comments increased time for set up; quad set, pain free hamstring stretch Supine Exercise Name HEP review Side bilateral Equipment Used c/ gait belt Reps/Minutes 2x60 ea Comments cued for form, no knee flex Standing Exercises resisted stepping Standing Exercise Name lateral-HEP Side bilateral Resistance level 3 band at shins Reps/Minutes 3x10 ft bottom's up stretch Standing Exercise Name 16 step- HEP Side bilateral Reps/Minutes 60 (w/ slight trunk flex/ext for dynamic HS length) Comments pain free; cued set up quad stretch Standing Exercise Name c/ strap under shoulder- HEP Side bilateral Equipment Used hand support for balance as needed on plinth Reps/Minutes 60 ea Comments able to safely self don/doff, maintain rTSA precautions TKE Standing Exercise Name HEP review Side bilateral Resistance level 3 band Reps/Minutes 15 ea Manual Therapy Treatment Consent Patient gave verbal consent for manual Yes treatment Soft Tissue Mobilization R knee Body Location HS, quad, adductors, calf, hip flexors Mobilization Type Rolling,Strumming Intensity/Depth Moderate Body Position Supine Comments Increased restrictions and several trigger points present on quad, adductors, hip flexors. HS restricted and tight, more than L. Slight swelling lateral knee L knee Body Location HS, quad, adductors, calf, hip flexors Mobilization Type Rolling,Strumming,Sustained Pressure Intensity/Depth Moderate Body Position Supine Comments Increased restrictions and several trigger points present on quad, adductors, hip flexors. HS restricted and tight, less than R. Joint Mobilizations R knee Joint patellar, tibiofemoral Direction PA, AP, med/lat/sup/inf Body Position Supine Reps/Duration 2x10 ea Comments Grade III PA-AP for knee flex/ ext to improve mobility Grade II patellar mobilization . Very restricted medial- lateral mobility PT-OP-T Assessment and Plan Start: 09/12/24 14:23 Freq: Status: Active Protocol: Document 09/14/24 11:32 NM (Rec: 09/14/24 12:22 NM [id number]) Physical Therapy Assessment Goals Four Impairment B hip ext/abd strength decreased, quad strength; squat challenging Short Term Goal (STG) Pt will be able to perform at least 10 B squats without compensation or knee pain for improved strength during transfers and strength for skiing stability STG Duration 5 weeks Contract Manager Goal (LTG) Pt will improve B hip extensory/abductor and quad strength to at least 4/5 MMT or better to demonstrate improved stability for skiing LTG Duration 8 weeks Three Impairment R knee ROM lacking 5 deg ext, 125 deg flex Fpc Goal (LTG) Pt will improve R knee extension ROM to <3 deg in order to demonstrate increased TKE for gait and SLS LTG Duration 8 weeks Two Impairment SLS impaired Contract Manager Goal (LTG) Pt will be able to perform single leg stance for at least 10 seconds without increased knee or hip pain to improve stability during gait and skiing LTG Duration 8 weeks One Impairment not performing HEP for knees Short Term Goal (STG) Pt will report compliance with HEP at least 2x/wk in order to maximize progression with PT STG Duration 4 weeks Contract Manager Goal (LTG) Pt will be IND with HEP to transition to maintenance program upon discharge LTG Duration 8 weeks Assessment Summary Assessment Pt lacking 2 deg R knee ext end of session. Increased restrictions of B quads and hamstrings, reduced but not eliminated with manual therapy . Initiated quad and hamstring stretching. Modified for comfort and shoulder position. Cueing needed for safety and correct execution. Progressed quad strength with TKE and SLR . Good feedback for resisted hip strengthening, no knee pain. Pt would continue to benefit from skilled PT for progressive flexibility and strengthening in order to improve symptom management and to promote greater independence with mobility/ ADLs. Physical Therapy Plan Frequency and Duration Frequency of Treatment 2x/Week Duration of treatment (weeks) 8 Plan of Care Start Date 09/12/24 Plan of Care End Date 11/11/24 Therapeutic Interventions Therapeutic Interventions Balance Training,Gait Training ,Home Exercise Program,Joint Mobilizations,Manual Therapy, Neuromuscular Re-education, Orthotic/Prosthetic Management ,Patient/Caregiver Education, Self-Care/Home Management, Sensory Integration,Soft Tissue Mobilization,Taping, Therapeutic Activities, Therapeutic Exercises Modalities Cold Pack/Ice Massage,Electric Stimulation,Hot Packs, Ultrasound Next Visit Focus/Plan Next Note Type Treatment Note Next Visit Plan Knee ext ROM. Quad strength: trial slider squat, leg press, step up. Initiate wall squat vs chair squat vs slider squat . Hip strength: 3 way, resisted stepping SLS and balance/proprio training manual therapy: STM, R knee mob
--- NOTE | 2024-10-07 16:34 | PT.OTN ---
Current Diagnoses Bilateral primary osteoarthritis of knee (10/07/24) Stiffness of right knee, not elsewhere classified (10/07/24) Stiffness of left knee, not elsewhere classified (10/07/24) Unsteadiness on feet (10/07/24) Other abnormalities of gait and mobility (10/07/24) Weakness (10/07/24) Physical Therapy Treatment Note PT-OP-A Visit Information Start: 09/12/24 14:23 Freq: Status: Active Protocol: Document 10/07/24 10:46 NM (Rec: 10/07/24 12:23 NM [id number]) Out-Patient Physical Therapy Visit Information Visit Information Visit Type Treatment Note Visit Note KX after 19 visits Juan Visit Start Time 10:47 Visit Stop Time 11:30 Visit Number 3 Evaluation Information Evaluation Date 09/12/24 Precautions Precautions L achilles repair, L lisfranc fracture and repair hx PT-OP-B Current Condition Start: 09/12/24 14:23 Freq: Status: Active Protocol: Document 09/12/24 14:24 NM (Rec: 09/12/24 15:51 NM [id number]) Current Condition History of Current Condition Onset Date several years History of Current Condition Pt presents to clinic with B knee pain, has OA. 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 He has had cortisone injections several weeks, B knees; reports has helped. He has had imaging in 2017, recently. Has not seen an orthopedist for condition for this round. Hx of L Achilles and rupture 2-3 years ago, reports still bothers him a little bit, reports soreness following increased activity. Pt reports pain worse on R side than L. Wears braces on his knee during skiing. Pt reports that lives on uneven surfaces, so walking especially if carrying heavy objects. He reports minimal pain with stairs unless making multiple trips. Hx of fall off ladder 2023, no other falls. No knee buckling, knee giving out, clicking, popping, locking. Skiis 1-2 weeks/ month. Also hx of L lisfranc fracture w/ surgery 10 years, very stiff Treatment Goals Patient/Caregiver Goals learn how to do a program to help especially if having a future replacements PT-OP-C Subjective Start: 09/12/24 14:23 Freq: Status: Active Protocol: Document 10/07/24 10:46 NM (Rec: 10/07/24 12:23 NM [id number]) OP-PT Subjective Patient Comments Patient Comments Pt reports went skiing several times last week, reports deeper snow tweaks knees. He reports knees do not bother him with resting. He reports that knees still bother him with stairs and downhill hiking, twisting motions in knees. Pt had procedure on his face to address skin cancer, not given restrictions. Planning to schedule appt with ortho. PT-OP-D Balance Start: 09/14/24 12:23 Freq: Status: Active Protocol: Document 09/14/24 11:32 NM (Rec: 09/14/24 12:23 NM [id number]) Balance Tests Single Limb Standing Single Limb- Right 12 sec Single Limb- Left 3 sec Tandem Tandem Standing 13 sec PT-OP-E Functional Tests Start: 09/12/24 14:23 Freq: Status: Active Protocol: Document 09/12/24 14:24 NM (Rec: 09/12/24 15:51 NM [id number]) Functional Tests Squat Test Score 5 Comments demos decreased hip hinge, ankle mobility PT-OP-F Manual Assessment Start: 09/12/24 14:23 Freq: Status: Active Protocol: Document 09/12/24 14:24 NM (Rec: 09/12/24 15:51 NM [id number]) Manual Assessments Soft Tissue Assessment Soft Tissue Mobility Assessment increased restrictions of B hamstrings R>L, L achilles/ calf more restricted than R Joint Mobility Assessment Joint Mobility Assessment decreased R knee jt mobility, decreased L foot mobility PT-OP-J Posture/Palpation/Skin Start: 09/12/24 14:23 Freq: Status: Active Protocol: Document 09/12/24 14:24 NM (Rec: 09/12/24 15:51 NM [id number]) Palpation Assessment Location L knee Palpation Details No tenderness to palpation R knee Palpation Details Mild swelling compared to LLE especially behind posterolateral knee No tenderness to palpation PT-OP-K Range of Motion Start: 09/12/24 14:23 Freq: Status: Active Protocol: Document 10/07/24 10:46 NM (Rec: 10/07/24 12:23 NM [id number]) Knee Goniometric Range of Motion Knee Right Flexion Active (degrees) 125 Extension Active (degrees) 5 Left Flexion Active (degrees) 130 Extension Active (degrees) 0 PT-OP-L Special Tests Start: 09/12/24 14:23 Freq: Status: Active Protocol: Document 09/12/24 14:24 NM (Rec: 09/12/24 15:51 NM [id number]) Special Tests Knee Special Tests Varus Test Results - Comments 0 and 25 deg, B Valgus Test Results - Comments 0 and 25 deg, B Yuri Test Test Results - Comments B PT-OP-M Strength Start: 09/12/24 14:23 Freq: Status: Active Protocol: Document 10/07/24 10:46 NM (Rec: 10/07/24 12:23 NM [id number]) Knee Strength Knee Manual Muscle Testing Right Flexion (S2) 4- Good- Extension (L3) 4- Good- Left Flexion (S2) 4 Good Extension (L3) 4- Good- PT-OP-Q Treatments Start: 09/12/24 14:23 Freq: Status: Active Protocol: Document 10/07/24 10:46 NM (Rec: 10/07/24 12:23 NM [id number]) Therapeutic Exercises Supine Exercises quad set Side bilateral Equipment Used towel roll behind knee Reps/Minutes 10x3 SLR Side bilateral Resistance AROM Equipment Used c/ quad set Reps/Minutes 10 ea Comments improved quad set, maintains hamstring stretch Supine Exercise Name HEP review Side bilateral Equipment Used c/ gait belt Reps/Minutes 1x60 ea Comments cued for form, no knee flex Standing Exercises hip 3 way Standing Exercise Name c/ slider Side bilateral Equipment Used increased time needed for hip hinge and cueing Reps/Minutes 3 ea direction Comments trialed in PT; hard to coord hip/knee flex, poor form, d/c today resisted stepping Standing Exercise Name lateral-HEP review Side bilateral Resistance level 3 band at ankles Equipment Used slight squat position Reps/Minutes 3x10 ft (edu to use counter top at home) Comments cued more hip hinge, no trunk lean, neutral hip/foot Therapeutic Activity Therapeutic Activity squat Reps/Minutes 10 min Comments 1. hip hinge in standing 2. hip hinge toward chair 3. STS from chair 4. squat via hip hinge c/ level 3 band added to knees to limit valgus increased time and reps needed along with verbal and tactile cueing needed for correct execution to limit increased knee flex vs hip flexion Manual Therapy Treatment Consent Patient gave verbal consent for manual Yes treatment Soft Tissue Mobilization R knee Body Location HS, quad, adductors, calf, hip flexors Mobilization Type Rolling,Strumming Intensity/Depth Moderate Body Position Supine Comments Increased restrictions and several trigger points present on quad, adductors, hip flexors. HS restricted and tight, more than L. Slight swelling lateral knee 125 deg to lacking 10 deg L knee Body Location HS, quad, adductors, calf, hip flexors Mobilization Type Rolling,Strumming,Sustained Pressure Intensity/Depth Moderate Body Position Supine Comments Increased restrictions and several trigger points present on quad, adductors, hip flexors. HS restricted and tight, less than R. 125 deg to 1 Joint Mobilizations L knee Joint patellar Direction med/lat/sup/inf Grade II Body Position Supine Reps/Duration 20 ea Comments monitored for pain R knee Joint patellar Direction med/lat/sup/inf Body Position Supine Reps/Duration 2x10 ea Comments Grade II patellar mobilization . Very restricted medial- lateral mobility PT-OP-T Assessment and Plan Start: 09/12/24 14:23 Freq: Status: Active Protocol: Document 10/07/24 10:46 NM (Rec: 10/07/24 12:23 NM [id number]) Physical Therapy Assessment Goals Four Impairment B hip ext/abd strength decreased, quad strength; squat challenging Short Term Goal (STG) Pt will be able to perform at least 10 B squats without compensation or knee pain for improved strength during transfers and strength for skiing stability STG Duration 5 weeks Parts Remover Goal (LTG) Pt will improve B hip extensory/abductor and quad strength to at least 4/5 MMT or better to demonstrate improved stability for skiing LTG Duration 8 weeks Three Impairment R knee ROM lacking 5 deg ext, 125 deg flex Fpc Goal (LTG) Pt will improve R knee extension ROM to <3 deg in order to demonstrate increased TKE for gait and SLS LTG Duration 8 weeks Two Impairment SLS impaired Fpc Goal (LTG) Pt will be able to perform single leg stance for at least 10 seconds without increased knee or hip pain to improve stability during gait and skiing LTG Duration 8 weeks One Impairment not performing HEP for knees Short Term Goal (STG) Pt will report compliance with HEP at least 2x/wk in order to maximize progression with PT 10/07/24: STG Duration 4 weeks Fpc Goal (LTG) Pt will be IND with HEP to transition to maintenance program upon discharge LTG Duration 8 weeks Assessment Summary Assessment Pt tolerated session well, no increased knee pain. Reviewed HEP for correct execution as pt has not been seen in clinic for several weeks. Hip hinge most challening for pt to incorporate more glute activation over quad activation during squats. Tendency for quad dominance. Maximal cueing for hip hinge, regressed to squat at chair to promote hinge over slider squats. Pt also wanting minimal visits due to out of town, but PT recommending continue with HEP and skilled PT to maximize knee ROM and strength especially on R knee. Physical Therapy Plan Frequency and Duration Frequency of Treatment 2x/Week Duration of treatment (weeks) 8 Plan of Care Start Date 09/12/24 Plan of Care End Date 11/11/24 Therapeutic Interventions Therapeutic Interventions Balance Training,Gait Training ,Home Exercise Program,Joint Mobilizations,Manual Therapy, Neuromuscular Re-education, Orthotic/Prosthetic Management ,Patient/Caregiver Education, Self-Care/Home Management, Sensory Integration,Soft Tissue Mobilization,Taping, Therapeutic Activities, Therapeutic Exercises Modalities Cold Pack/Ice Massage,Electric Stimulation,Hot Packs, Ultrasound Next Visit Focus/Plan Next Note Type Progress Note Next Visit Plan Knee ext ROM. retrial slider squat, hip hinge at wall. Quad strength: trial slider squat, leg press, step up. Initiate wall squat vs chair squat vs slider squat. Hip strength: 3 way, resisted stepping SLS and balance/proprio training manual therapy: STM, R knee mob
--- NOTE | 2024-10-10 15:40 | PT.OTN ---
Current Diagnoses Bilateral primary osteoarthritis of knee (10/10/24) Stiffness of right knee, not elsewhere classified (10/10/24) Stiffness of left knee, not elsewhere classified (10/10/24) Unsteadiness on feet (10/10/24) Other abnormalities of gait and mobility (10/10/24) Weakness (10/10/24) Physical Therapy Treatment Note PT-OP-A Visit Information Start: 09/12/24 14:23 Freq: Status: Active Protocol: Document 10/10/24 13:47 NM (Rec: 10/10/24 14:33 NM [id number]) Out-Patient Physical Therapy Visit Information Visit Information Visit Type Progress Note Visit Note KX after 19 visits Juan Visit Start Time 13:49 Visit Stop Time 14:30 Visit Number 4 Evaluation Information Evaluation Date 09/12/24 Precautions Precautions L achilles repair, L lisfranc fracture and repair hx PT-OP-B Current Condition Start: 09/12/24 14:23 Freq: Status: Active Protocol: Document 09/12/24 14:24 NM (Rec: 09/12/24 15:51 NM [id number]) Current Condition History of Current Condition Onset Date several years History of Current Condition Pt presents to clinic with B knee pain, has OA. 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 He has had cortisone injections several weeks, B knees; reports has helped. He has had imaging in 2017, recently. Has not seen an orthopedist for condition for this round. Hx of L Achilles and rupture 2-3 years ago, reports still bothers him a little bit, reports soreness following increased activity. Pt reports pain worse on R side than L. Wears braces on his knee during skiing. Pt reports that lives on uneven surfaces, so walking especially if carrying heavy objects. He reports minimal pain with stairs unless making multiple trips. Hx of fall off ladder 2023, no other falls. No knee buckling, knee giving out, clicking, popping, locking. Skiis 1-2 weeks/ month. Also hx of L lisfranc fracture w/ surgery 10 years, very stiff Treatment Goals Patient/Caregiver Goals learn how to do a program to help especially if having a future replacements PT-OP-C Subjective Start: 09/12/24 14:23 Freq: Status: Active Protocol: Document 10/10/24 13:47 NM (Rec: 10/10/24 14:33 NM [id number]) OP-PT Subjective Patient Comments Patient Comments Pt reports feeling stronger in his knees. Reports that has ortho appt in November. He went on a 2 mi hike this past weekend, reports pain with twisting still and going down stairs. Has been trying the squats for HEP. PT-OP-D Balance Start: 09/14/24 12:23 Freq: Status: Active Protocol: Document 09/14/24 11:32 NM (Rec: 09/14/24 12:23 NM [id number]) Balance Tests Single Limb Standing Single Limb- Right 12 sec Single Limb- Left 3 sec Tandem Tandem Standing 13 sec PT-OP-E Functional Tests Start: 09/12/24 14:23 Freq: Status: Active Protocol: Document 09/12/24 14:24 NM (Rec: 09/12/24 15:51 NM [id number]) Functional Tests Squat Test Score 5 Comments demos decreased hip hinge, ankle mobility PT-OP-F Manual Assessment Start: 09/12/24 14:23 Freq: Status: Active Protocol: Document 09/12/24 14:24 NM (Rec: 09/12/24 15:51 NM [id number]) Manual Assessments Soft Tissue Assessment Soft Tissue Mobility Assessment increased restrictions of B hamstrings R>L, L achilles/ calf more restricted than R Joint Mobility Assessment Joint Mobility Assessment decreased R knee jt mobility, decreased L foot mobility PT-OP-J Posture/Palpation/Skin Start: 09/12/24 14:23 Freq: Status: Active Protocol: Document 09/12/24 14:24 NM (Rec: 09/12/24 15:51 NM [id number]) Palpation Assessment Location L knee Palpation Details No tenderness to palpation R knee Palpation Details Mild swelling compared to LLE especially behind posterolateral knee No tenderness to palpation PT-OP-K Range of Motion Start: 09/12/24 14:23 Freq: Status: Active Protocol: Document 10/10/24 13:47 NM (Rec: 10/10/24 14:33 NM [id number]) Knee Goniometric Range of Motion Knee Right Flexion Active (degrees) 125 Extension Active (degrees) 3 Comments 10/10/24: lacking 3 deg ext Left Flexion Active (degrees) 130 Extension Active (degrees) 0 PT-OP-L Special Tests Start: 09/12/24 14:23 Freq: Status: Active Protocol: Document 09/12/24 14:24 NM (Rec: 09/12/24 15:51 NM [id number]) Special Tests Knee Special Tests Varus Test Results - Comments 0 and 25 deg, B Valgus Test Results - Comments 0 and 25 deg, B Yuri Test Test Results - Comments B PT-OP-M Strength Start: 09/12/24 14:23 Freq: Status: Active Protocol: Document 10/10/24 13:47 NM (Rec: 10/10/24 14:33 NM [id number]) Hip Strength Hip Manual Muscle Testing Right Flexion (L2) 4 Good Extension (S1) 4 Good Abduction 4 Good Adduction 4 Good External Rotation 4 Good Internal Rotation 4 Good Left Flexion (L2) 4 Good Extension (S1) 4 Good Abduction 4 Good Adduction 4 Good External Rotation 4 Good Internal Rotation 4 Good Knee Strength Knee Manual Muscle Testing Right Flexion (S2) 4- Good- Extension (L3) 4 Good Left Flexion (S2) 4 Good Extension (L3) 4 Good PT-OP-Q Treatments Start: 09/12/24 14:23 Freq: Status: Active Protocol: Document 10/10/24 13:47 NM (Rec: 10/10/24 14:33 NM [id number]) Therapeutic Exercises Supine Exercises piriformis stretch Supine Exercise Name c/ cross body adduction Side bilateral Reps/Minutes 60 ea figure 4 stretch Supine Exercise Name modified hooklying- HEP Side bilateral Reps/Minutes 60 ea Standing Exercises squats Standing Exercise Name to chair- HEP review (see TA section 2) Side bilateral Reps/Minutes 10 AROM, 5 c/ level 3 [place] band Comments 08/[address] Standing Exercise Name AROM c/ squat- HEP w/ squat hold and foot tap Side bilateral Equipment Used improved hip hinge but still needs cueing Reps/Minutes 8 ea direction Comments cued no stepping, hip hinge > knee flex; no knee pain Other Exercises step up Other Exercise Name 6 Side bilateral Resistance AROM, no UE support Reps/Minutes 2x10 Comments cueing for form, alignment; no increased knee pain; prn cues steadiness Manual Therapy Treatment Consent Patient gave verbal consent for manual Yes treatment Soft Tissue Mobilization R knee Body Location HS, quad, adductors, calf, hip flexors Mobilization Type Rolling,Strumming Intensity/Depth Moderate Body Position Supine Comments Increased restrictions and several trigger points present on quad, adductors, hip flexors. HS restricted and tight, more than L. Slight swelling lateral knee 125 deg to lacking 3 deg L knee Body Location HS, quad, adductors, calf, hip flexors Mobilization Type Rolling,Strumming,Sustained Pressure Intensity/Depth Moderate Body Position Supine Comments Increased restrictions and several trigger points present on quad, adductors, hip flexors. HS restricted and tight, less than R. 125 deg to 1 deg Neuro Re-Education Treatment Balance Activities SLS Details close SBA Surface stable Reps/Duration 2x30 ea Comments 8 sec LLE, 10 sec RLE then 2x30 ea for time with prn hand support to steady PT-OP-T Assessment and Plan Start: 09/12/24 14:23 Freq: Status: Active Protocol: Document 10/10/24 13:47 NM (Rec: 10/10/24 14:33 NM [id number]) Physical Therapy Assessment Goals Four Impairment B hip ext/abd strength decreased, quad strength; squat challenging Short Term Goal (STG) Pt will be able to perform at least 10 B squats without compensation or knee pain for improved strength during transfers and strength for skiing stability 10/10/24: 10 squats (1/10 pain in knees) STG Duration 5 weeks Halfway Goal (LTG) Pt will improve B hip extensory/abductor and quad strength to at least 4/5 MMT or better to demonstrate improved stability for skiing 10/10/24: 4/5 for all except R quads 4-/5 MMT LTG Duration 8 weeks PROGRESSING 10/07 Three Impairment R knee ROM lacking 5 deg ext, 125 deg flex Halfway Goal (LTG) Pt will improve R knee extension ROM to <3 deg in order to demonstrate increased TKE for gait and SLS 10/07/24: lacking 10 deg prior to manual treatment 10/10/24: lacking 3 deg before manual treatment LTG Duration 8 weeks PROGRESSING 10/10 Two Impairment SLS impaired Dot Net Developer Goal (LTG) Pt will be able to perform single leg stance for at least 10 seconds without increased knee or hip pain to improve stability during gait and skiing 10/10/24: 8 sec LLE, 10 sec RLE w/o UE support, no pain LTG Duration 8 weeks PROGRESSING 10/10 One Impairment not performing HEP for knees Short Term Goal (STG) Pt will report compliance with HEP at least 2x/wk in order to maximize progression with PT 10/10/24: compliant with HEP STG Duration 4 weeks MET Halfway Goal (LTG) Pt will be IND with HEP to transition to maintenance program upon discharge LTG Duration 8 weeks Progress Towards Goals Progress Towards Goals Progressing Toward Goals,Slow Progress due to Attendance Issues Assessment Summary Assessment Pt has 1/10 knee pain with standard squats; demos improved hip hinge and needs less cueing for execution. Trialed progression to hip 3 way AROM with foot tap and maintaining slight squat hold; cueing needed for less knee flexion and more hip hinge. Improved with reps and cueing but still tendency for quad dominance during all closed chain knee flexion; able to perform without UE assist and with improved steadiness over time. No increase in knee pain with step ups on standard 6 step; cueing needed for alignment of knee/hip ankle due to compensations at hip. Will assess eccentric step downs to emphasize quad control/strength and alignment in future sessions to address . Pt knee mobility also likely further impacted by restrictions in B hip mobility R>L. Physical Therapy Plan Frequency and Duration Frequency of Treatment 2x/Week Duration of treatment (weeks) 8 Plan of Care Start Date 09/12/24 Plan of Care End Date 11/11/24 Therapeutic Interventions Therapeutic Interventions Balance Training,Gait Training ,Home Exercise Program,Joint Mobilizations,Manual Therapy, Neuromuscular Re-education, Orthotic/Prosthetic Management ,Patient/Caregiver Education, Self-Care/Home Management, Sensory Integration,Soft Tissue Mobilization,Taping, Therapeutic Activities, Therapeutic Exercises Modalities Cold Pack/Ice Massage,Electric Stimulation,Hot Packs, Ultrasound Next Visit Focus/Plan Next Note Type Treatment Note Next Visit Plan Focus on knee flex and ext ROM R>L. Hip mobility. Retrial hip 3 way c/ taps vs progression to AROM squat c/ taps vs slider squat depending on form. Hip hinge at wall retraining if needed. Progress to eccentric step down 4. Kickstand RDL vs B RDL straight leg. Leg press unilateral. SLS and balance/proprio training manual therapy: STM, R knee mob
--- NOTE | 2024-10-12 16:47 | PT.OTN ---
Current Diagnoses Bilateral primary osteoarthritis of knee (10/12/24) Stiffness of right knee, not elsewhere classified (10/12/24) Stiffness of left knee, not elsewhere classified (10/12/24) Unsteadiness on feet (10/12/24) Other abnormalities of gait and mobility (10/12/24) Weakness (10/12/24) Physical Therapy Treatment Note PT-OP-A Visit Information Start: 09/12/24 14:23 Freq: Status: Active Protocol: Document 10/12/24 13:08 NBM (Rec: 10/12/24 13:56 [facility] [id number]) Out-Patient Physical Therapy Visit Information Visit Information Visit Type Progress Note Visit Note KX after 19 visits Juan Visit Start Time 13:08 Visit Stop Time 13:50 Visit Number 5 Number of SHOE SPRAYER Visits 1 Evaluation Information Evaluation Date 09/12/24 Precautions Precautions L achilles repair, L lisfranc fracture and repair hx PT-OP-B Current Condition Start: 09/12/24 14:23 Freq: Status: Active Protocol: Document 09/12/24 14:24 NM (Rec: 09/12/24 15:51 NM [id number]) Current Condition History of Current Condition Onset Date several years History of Current Condition Pt presents to clinic with B knee pain, has OA. 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 He has had cortisone injections several weeks, B knees; reports has helped. He has had imaging in 2017, recently. Has not seen an orthopedist for condition for this round. Hx of L Achilles and rupture 2-3 years ago, reports still bothers him a little bit, reports soreness following increased activity. Pt reports pain worse on R side than L. Wears braces on his knee during skiing. Pt reports that lives on uneven surfaces, so walking especially if carrying heavy objects. He reports minimal pain with stairs unless making multiple trips. Hx of fall off ladder 2023, no other falls. No knee buckling, knee giving out, clicking, popping, locking. Skiis 1-2 weeks/ month. Also hx of L lisfranc fracture w/ surgery 10 years, very stiff Treatment Goals Patient/Caregiver Goals learn how to do a program to help especially if having a future replacements PT-OP-C Subjective Start: 09/12/24 14:23 Freq: Status: Active Protocol: Document 10/12/24 13:08 NBM (Rec: 10/12/24 13:56 NBM [id number]) OP-PT Subjective Patient Comments Patient Comments Raghu reports he continues to do better. The only exercise from HEP he doesn't do is the one lying down with leg hanging off which he states PT said is fine. He wants to know if there's another way to stretch quad besides holding a strap for it. He's been practicing balance on one leg, and wants to review the chair squats and 3-way hip ex to see if he's doing them right. PT-OP-D Balance Start: 09/14/24 12:23 Freq: Status: Active Protocol: Document 09/14/24 11:32 NM (Rec: 09/14/24 12:23 NM [id number]) Balance Tests Single Limb Standing Single Limb- Right 12 sec Single Limb- Left 3 sec Tandem Tandem Standing 13 sec PT-OP-E Functional Tests Start: 09/12/24 14:23 Freq: Status: Active Protocol: Document 09/12/24 14:24 NM (Rec: 09/12/24 15:51 NM [id number]) Functional Tests Squat Test Score 5 Comments demos decreased hip hinge, ankle mobility PT-OP-F Manual Assessment Start: 09/12/24 14:23 Freq: Status: Active Protocol: Document 09/12/24 14:24 NM (Rec: 09/12/24 15:51 NM [id number]) Manual Assessments Soft Tissue Assessment Soft Tissue Mobility Assessment increased restrictions of B hamstrings R>L, L achilles/ calf more restricted than R Joint Mobility Assessment Joint Mobility Assessment decreased R knee jt mobility, decreased L foot mobility PT-OP-J Posture/Palpation/Skin Start: 09/12/24 14:23 Freq: Status: Active Protocol: Document 09/12/24 14:24 NM (Rec: 09/12/24 15:51 NM [id number]) Palpation Assessment Location L knee Palpation Details No tenderness to palpation R knee Palpation Details Mild swelling compared to LLE especially behind posterolateral knee No tenderness to palpation PT-OP-K Range of Motion Start: 09/12/24 14:23 Freq: Status: Active Protocol: Document 10/10/24 13:47 NM (Rec: 10/10/24 14:33 NM [id number]) Knee Goniometric Range of Motion Knee Right Flexion Active (degrees) 125 Extension Active (degrees) 3 Comments 10/10/24: lacking 3 deg ext Left Flexion Active (degrees) 130 Extension Active (degrees) 0 PT-OP-L Special Tests Start: 09/12/24 14:23 Freq: Status: Active Protocol: Document 09/12/24 14:24 NM (Rec: 09/12/24 15:51 NM [id number]) Special Tests Knee Special Tests Varus Test Results - Comments 0 and 25 deg, B Valgus Test Results - Comments 0 and 25 deg, B Yuri Test Test Results - Comments B PT-OP-M Strength Start: 09/12/24 14:23 Freq: Status: Active Protocol: Document 10/10/24 13:47 NM (Rec: 10/10/24 14:33 NM [id number]) Hip Strength Hip Manual Muscle Testing Right Flexion (L2) 4 Good Extension (S1) 4 Good Abduction 4 Good Adduction 4 Good External Rotation 4 Good Internal Rotation 4 Good Left Flexion (L2) 4 Good Extension (S1) 4 Good Abduction 4 Good Adduction 4 Good External Rotation 4 Good Internal Rotation 4 Good Knee Strength Knee Manual Muscle Testing Right Flexion (S2) 4- Good- Extension (L3) 4 Good Left Flexion (S2) 4 Good Extension (L3) 4 Good PT-OP-Q Treatments Start: 09/12/24 14:23 Freq: Status: Active Protocol: Document 10/12/24 13:08 NBM (Rec: 10/12/24 13:56 NBM [id number]) Therapeutic Exercises Supine Exercises figure 4 stretch Supine Exercise Name modified hooklying- HEP - verbal review only Side bilateral Reps/Minutes 60 ea Comments next session hamstring stretch Supine Exercise Name HEP review - verbal review only Side bilateral Equipment Used c/ gait belt Reps/Minutes 1x60 ea Comments cued for form, no knee flex mounika stretch Side bilateral Reps/Minutes 60 ea Comments pt not performing, replaced w/ standing hip flexor stretch. Standing Exercises hip flexor stretch Standing Exercise Name hip and calf stretch, foot on second step Side bilateral Equipment Used 6 training stairs, rails for balance Reps/Minutes x30 each Comments cues for toes fwd, gluteal squeeze, good feedback response squats Standing Exercise Name to chair- HEP review (see TA section 10/07) Side bilateral Reps/Minutes 5 AROM, 10 c/ level 3 lumbee band Comments painfree, hip hinge cues. glute squeeze top. hip 3 way Standing Exercise Name AROM c/ squat- HEP w/ squat hold and foot tap Side bilateral Reps/Minutes 10 ea direction Comments verbal/tactile cues for hip hinge, heel tap fwd resisted stepping Standing Exercise Name lateral-HEP review Side bilateral Resistance level 3 band at ankles Equipment Used slight squat position Reps/Minutes 3x10 ft (use counter top at home) Comments cued more hip hinge, no trunk lean, neutral hip/foot quad stretch Standing Exercise Name 1. c/ strap under shoulder- HEP -verbal 2. foot pushes into 3rd step Side bilateral Equipment Used hand support for balance as needed on plinth Reps/Minutes 60 ea Comments able to safely self don/doff, maintain rTSA precautions TKE Standing Exercise Name next session Neuro Re-Education Treatment Balance Activities SLS Details close SBA Surface stable Reps/Duration trials Comments 6 sec LLE, 8 sec RLE; after cueing for gluteal activation 14, 23 sec LLE; 14, 17 sec RLE (LTG Two met) Self-Care/Home Management Treatment Education Patient Education Body Mechanics,Home Exercise Program,Joint Protection,Pain Management Other Education Significant time edu to pt re: hip hinge for squatting and STS mechanics to protect knee joints and for carryover to HEP. Edu for gluteal activaiton with balance and upright posture. PT-OP-T Assessment and Plan Start: 09/12/24 14:23 Freq: Status: Active Protocol: Document 10/12/24 13:08 [facility] (Rec: 10/12/24 13:56 [facility] [id number]) Physical Therapy Assessment Goals Four Impairment B hip ext/abd strength decreased, quad strength; squat challenging Short Term Goal (STG) Pt will be able to perform at least 10 B squats without compensation or knee pain for improved strength during transfers and strength for skiing stability 10/10/24: 10 squats (1/10 pain in knees) STG Duration 5 weeks Retirement Goal (LTG) Pt will improve B hip extensory/abductor and quad strength to at least 4/5 MMT or better to demonstrate improved stability for skiing 10/10/24: 4/5 for all except R quads 4-/5 MMT LTG Duration 8 weeks PROGRESSING 10/07 Three Impairment R knee ROM lacking 5 deg ext, 125 deg flex Retirement Goal (LTG) Pt will improve R knee extension ROM to <3 deg in order to demonstrate increased TKE for gait and SLS 10/07/24: lacking 10 deg prior to manual treatment 10/10/24: lacking 3 deg before manual treatment LTG Duration 8 weeks PROGRESSING 10/10 Two Impairment SLS impaired Station Agent Goal (LTG) Pt will be able to perform single leg stance for at least 10 seconds without increased knee or hip pain to improve stability during gait and skiing 10/10/24: 8 sec LLE, 10 sec RLE w/o UE support, no pain 10/12/24: after cueing for gluteal activation: 23 sec LLE , 17 sec RLE w/o UE support, no pain LTG Duration 8 weeks MET 10/12 One Impairment not performing HEP for knees Short Term Goal (STG) Pt will report compliance with HEP at least 2x/wk in order to maximize progression with PT 10/10/24: compliant with HEP STG Duration 4 weeks MET Station Agent Goal (LTG) Pt will be IND with HEP to transition to maintenance program upon discharge LTG Duration 8 weeks Assessment Summary Assessment Treatment focus on HEP review and significant time spent edu pt re: hip hinge mechanics, especially with resisted chair taps and 3-way hip in mini squat position. Raghu demonstrates improved painfree hip hinge but is challenged to maintain mechanics with increased squat depth during chair taps. He requires cues throughout session for gluteal activation and SL balance max improves bilaterally from last visit with gluteal activation focus from LLE 8 sec, RLE 10 sec to LLE 23 sec and RLE 17 sec, meeting LTG Two. Resisted sidesteps progressed from Lvl 2 band at shins to ankles w/ mini squat and neutral foot position cueing. Physical Therapy Plan Frequency and Duration Frequency of Treatment 2x/Week Duration of treatment (weeks) 8 Plan of Care Start Date 09/12/24 Plan of Care End Date 11/11/24 Therapeutic Interventions Therapeutic Interventions Balance Training,Gait Training ,Home Exercise Program,Joint Mobilizations,Manual Therapy, Neuromuscular Re-education, Orthotic/Prosthetic Management ,Patient/Caregiver Education, Self-Care/Home Management, Sensory Integration,Soft Tissue Mobilization,Taping, Therapeutic Activities, Therapeutic Exercises Modalities Cold Pack/Ice Massage,Electric Stimulation,Hot Packs, Ultrasound Next Visit Focus/Plan Next Note Type Treatment Note Next Visit Plan Next: In preparation for possible D/C next visit HEP review to progress as tolerated, shanna resisted chair taps and 3-way hip w/ hip hinge focus, hip flexor/calf stretch staggered or lunge position (provide HO), sidesteps and TKE, piriformis stretch. POC: Focus on knee flex and ext ROM R>L. Hip mobility. Retrial hip 3 way c/ taps vs progression to AROM squat c/ taps vs slider squat depending on form. Hip hinge at wall retraining if needed. Progress to eccentric step down 4. Kickstand RDL vs B RDL straight leg. Leg press unilateral. SLS and balance/proprio training manual therapy: STM, R knee mob
--- NOTE | 2024-10-24 13:46 | PT.OTN ---
Current Diagnoses Bilateral primary osteoarthritis of knee (10/24/24) Stiffness of right knee, not elsewhere classified (10/24/24) Stiffness of left knee, not elsewhere classified (10/24/24) Unsteadiness on feet (10/24/24) Other abnormalities of gait and mobility (10/24/24) Weakness (10/24/24) Physical Therapy Treatment Note PT-OP-A Visit Information Start: 09/12/24 14:23 Freq: Status: Active Protocol: Document 10/24/24 13:01 NM (Rec: 10/24/24 13:46 NM [id number]) Out-Patient Physical Therapy Visit Information Visit Information Visit Type Treatment Note Visit Note KX after 19 visits Juan Visit Start Time 13:03 Visit Stop Time 13:43 Visit Number 6 Evaluation Information Evaluation Date 09/12/24 Precautions Precautions L achilles repair, L lisfranc fracture and repair hx PT-OP-B Current Condition Start: 09/12/24 14:23 Freq: Status: Active Protocol: Document 09/12/24 14:24 NM (Rec: 09/12/24 15:51 NM [id number]) Current Condition History of Current Condition Onset Date several years History of Current Condition Pt presents to clinic with B knee pain, has OA. 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 He has had cortisone injections several weeks, B knees; reports has helped. He has had imaging in 2017, recently. Has not seen an orthopedist for condition for this round. Hx of L Achilles and rupture 2-3 years ago, reports still bothers him a little bit, reports soreness following increased activity. Pt reports pain worse on R side than L. Wears braces on his knee during skiing. Pt reports that lives on uneven surfaces, so walking especially if carrying heavy objects. He reports minimal pain with stairs unless making multiple trips. Hx of fall off ladder 2023, no other falls. No knee buckling, knee giving out, clicking, popping, locking. Skiis 1-2 weeks/ month. Also hx of L lisfranc fracture w/ surgery 10 years, very stiff Treatment Goals Patient/Caregiver Goals learn how to do a program to help especially if having a future replacements PT-OP-C Subjective Start: 09/12/24 14:23 Freq: Status: Active Protocol: Document 10/24/24 13:01 NM (Rec: 03/10/25 13:46 NM [id number]) OP-PT Subjective Patient Comments Patient Comments Pt reports that he has been skiing last week, reports a little sore. States exercises are going well; he reports that he has some trouble with crab walks (side steps). PT-OP-D Balance Start: 09/14/24 12:23 Freq: Status: Active Protocol: Document 09/14/24 11:32 NM (Rec: 09/14/24 12:23 NM [id number]) Balance Tests Single Limb Standing Single Limb- Right 12 sec Single Limb- Left 3 sec Tandem Tandem Standing 13 sec PT-OP-E Functional Tests Start: 09/12/24 14:23 Freq: Status: Active Protocol: Document 09/12/24 14:24 NM (Rec: 09/12/24 15:51 NM [id number]) Functional Tests Squat Test Score 5 Comments demos decreased hip hinge, ankle mobility PT-OP-F Manual Assessment Start: 09/12/24 14:23 Freq: Status: Active Protocol: Document 09/12/24 14:24 NM (Rec: 09/12/24 15:51 NM [id number]) Manual Assessments Soft Tissue Assessment Soft Tissue Mobility Assessment increased restrictions of B hamstrings R>L, L achilles/ calf more restricted than R Joint Mobility Assessment Joint Mobility Assessment decreased R knee jt mobility, decreased L foot mobility PT-OP-J Posture/Palpation/Skin Start: 09/12/24 14:23 Freq: Status: Active Protocol: Document 09/12/24 14:24 NM (Rec: 09/12/24 15:51 NM [id number]) Palpation Assessment Location L knee Palpation Details No tenderness to palpation R knee Palpation Details Mild swelling compared to LLE especially behind posterolateral knee No tenderness to palpation PT-OP-K Range of Motion Start: 09/12/24 14:23 Freq: Status: Active Protocol: Document 10/24/24 13:01 NM (Rec: 10/24/24 13:46 NM [id number]) Knee Goniometric Range of Motion Knee Right Flexion Active (degrees) 125 Extension Active (degrees) 3 Comments 10/10/24: lacking 3 deg ext Left Flexion Active (degrees) 130 Extension Active (degrees) 0 PT-OP-L Special Tests Start: 09/12/24 14:23 Freq: Status: Active Protocol: Document 09/12/24 14:24 NM (Rec: 09/12/24 15:51 NM [id number]) Special Tests Knee Special Tests Varus Test Results - Comments 0 and 25 deg, B Valgus Test Results - Comments 0 and 25 deg, B Yuri Test Test Results - Comments B PT-OP-M Strength Start: 09/12/24 14:23 Freq: Status: Active Protocol: Document 10/10/24 13:47 NM (Rec: 10/10/24 14:33 NM [id number]) Hip Strength Hip Manual Muscle Testing Right Flexion (L2) 4 Good Extension (S1) 4 Good Abduction 4 Good Adduction 4 Good External Rotation 4 Good Internal Rotation 4 Good Left Flexion (L2) 4 Good Extension (S1) 4 Good Abduction 4 Good Adduction 4 Good External Rotation 4 Good Internal Rotation 4 Good Knee Strength Knee Manual Muscle Testing Right Flexion (S2) 4- Good- Extension (L3) 4 Good Left Flexion (S2) 4 Good Extension (L3) 4 Good PT-OP-Q Treatments Start: 09/12/24 14:23 Freq: Status: Active Protocol: Document 10/24/24 13:01 NM (Rec: 10/24/24 13:46 NM [id number]) Gym Equipment Shuttle Recovery unilateral press Details cued alignment of knee/ankle, R more challenging; feels in L hip (not pain) Resistance 50# (1 navy) Reps/Time 2x15 Therapeutic Exercises Supine Exercises figure 4 stretch Supine Exercise Name modified hooklying- HEP review Side bilateral Reps/Minutes 60 ea Comments towel roll added to assist with joint gapping Standing Exercises calf stretch Standing Exercise Name 1. gastrocnemius, 2. soleus Side bilateral Equipment Used staggered stance at wall Reps/Minutes 60 ea Comments good feedback for stretch; cued for neutral foot hip 3 way Standing Exercise Name AROM c/ squat hold and slider under foot (added to HEP) Side bilateral Reps/Minutes 8 ea Comments better form c/ slider than without TKE Standing Exercise Name HEP review Side bilateral Resistance level 4 band Equipment Used staggered stance, PT hold band Reps/Minutes 20 ea Comments mod cues for correct execution include drive heel to ground, only quad PT-OP-T Assessment and Plan Start: 09/12/24 14:23 Freq: Status: Active Protocol: Document 10/24/24 13:01 NM (Rec: 03/10/25 13:46 NM [id number]) Physical Therapy Assessment Goals Four Impairment B hip ext/abd strength decreased, quad strength; squat challenging Short Term Goal (STG) Pt will be able to perform at least 10 B squats without compensation or knee pain for improved strength during transfers and strength for skiing stability 10/10/24: 10 squats (1/10 pain in knees) STG Duration 5 weeks Deburrer Machine Goal (LTG) Pt will improve B hip extensory/abductor and quad strength to at least 4/5 MMT or better to demonstrate improved stability for skiing 10/10/24: 4/5 for all except R quads 4-/5 MMT LTG Duration 8 weeks PROGRESSING 10/07 Three Impairment R knee ROM lacking 5 deg ext, 125 deg flex Deburrer Machine Goal (LTG) Pt will improve R knee extension ROM to <3 deg in order to demonstrate increased TKE for gait and SLS 10/07/24: lacking 10 deg prior to manual treatment 10/10/24: lacking 3 deg before manual treatment 10/24/24: lacking 3 deg ext LTG Duration 8 weeks MET Two Impairment SLS impaired Deburrer Machine Goal (LTG) Pt will be able to perform single leg stance for at least 10 seconds without increased knee or hip pain to improve stability during gait and skiing 10/10/24: 8 sec LLE, 10 sec RLE w/o UE support, no pain 10/12/24: after cueing for gluteal activation: 23 sec LLE , 17 sec RLE w/o UE support, no pain LTG Duration 8 weeks MET 10/12 One Impairment not performing HEP for knees Short Term Goal (STG) Pt will report compliance with HEP at least 2x/wk in order to maximize progression with PT 10/10/24: compliant with HEP STG Duration 4 weeks MET Shelter Goal (LTG) Pt will be IND with HEP to transition to maintenance program upon discharge LTG Duration 8 weeks Assessment Summary Assessment Pt demos improvements in B knee ROM compared to when measured in previous sessions. Initiated calf stretches to improve ankle mobility. Pt progressing toward goals; PT and pt discussed discharge next session to maintenance for continued strengthening. Trialed unilateral squat on press; more challening on RLE for pt but does not have increased pain. Hip pain decreased with cueing for foot placement. Mod cues needed for correct execution TKE to limit compensations; improved enough to progress band for more quad strengthening. Physical Therapy Plan Frequency and Duration Frequency of Treatment 2x/Week Duration of treatment (weeks) 8 Plan of Care Start Date 09/12/24 Plan of Care End Date 11/11/24 Therapeutic Interventions Therapeutic Interventions Balance Training,Gait Training ,Home Exercise Program,Joint Mobilizations,Manual Therapy, Neuromuscular Re-education, Orthotic/Prosthetic Management ,Patient/Caregiver Education, Self-Care/Home Management, Sensory Integration,Soft Tissue Mobilization,Taping, Therapeutic Activities, Therapeutic Exercises Modalities Cold Pack/Ice Massage,Electric Stimulation,Hot Packs, Ultrasound Next Visit Focus/Plan Next Note Type Discharge Summary Next Visit Plan step down trial. hip flexor/ calf stretch staggered or lunge position (provide HO), sidesteps and TKE, piriformis stretch. Kickstand RDL vs B RDL straight leg. Leg press unilateral. manual therapy: STM, R knee mob
--- NOTE | 2024-10-27 10:32 | PT.OTN ---
Current Diagnoses Bilateral primary osteoarthritis of knee (10/27/24) Stiffness of right knee, not elsewhere classified (10/27/24) Stiffness of left knee, not elsewhere classified (10/27/24) Unsteadiness on feet (10/27/24) Other abnormalities of gait and mobility (10/27/24) Weakness (10/27/24) Physical Therapy Treatment Note PT-OP-A Visit Information Start: 09/12/24 14:23 Freq: Status: Active Protocol: Document 10/27/24 09:48 NM (Rec: 10/27/24 10:32 NM [id number]) Out-Patient Physical Therapy Visit Information Visit Information Visit Type Discharge Summary Visit Note KX after 19 visits Juan Visit Start Time 09:49 Visit Stop Time 10:29 Visit Number 7 Evaluation Information Evaluation Date 09/12/24 Precautions Precautions L achilles repair, L lisfranc fracture and repair hx PT-OP-B Current Condition Start: 09/12/24 14:23 Freq: Status: Active Protocol: Document 09/12/24 14:24 NM (Rec: 09/12/24 15:51 NM [id number]) Current Condition History of Current Condition Onset Date several years History of Current Condition Pt presents to clinic with B knee pain, has OA. 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 He has had cortisone injections several weeks, B knees; reports has helped. He has had imaging in 2017, recently. Has not seen an orthopedist for condition for this round. Hx of L Achilles and rupture 2-3 years ago, reports still bothers him a little bit, reports soreness following increased activity. Pt reports pain worse on R side than L. Wears braces on his knee during skiing. Pt reports that lives on uneven surfaces, so walking especially if carrying heavy objects. He reports minimal pain with stairs unless making multiple trips. Hx of fall off ladder 2023, no other falls. No knee buckling, knee giving out, clicking, popping, locking. Skiis 1-2 weeks/ month. Also hx of L lisfranc fracture w/ surgery 10 years, very stiff Treatment Goals Patient/Caregiver Goals learn how to do a program to help especially if having a future replacements PT-OP-C Subjective Start: 09/12/24 14:23 Freq: Status: Active Protocol: Document 10/27/24 09:48 NM (Rec: 10/27/24 10:32 NM [id number]) OP-PT Subjective Patient Comments Patient Comments Pt reports that he has had not changes. Agrees to discharge today. Brought HEP. He wants to know if PT-OP-D Balance Start: 09/14/24 12:23 Freq: Status: Active Protocol: Document 09/14/24 11:32 NM (Rec: 09/14/24 12:23 NM [id number]) Balance Tests Single Limb Standing Single Limb- Right 12 sec Single Limb- Left 3 sec Tandem Tandem Standing 13 sec PT-OP-E Functional Tests Start: 09/12/24 14:23 Freq: Status: Active Protocol: Document 09/12/24 14:24 NM (Rec: 09/12/24 15:51 NM [id number]) Functional Tests Squat Test Score 5 Comments demos decreased hip hinge, ankle mobility PT-OP-F Manual Assessment Start: 09/12/24 14:23 Freq: Status: Active Protocol: Document 09/12/24 14:24 NM (Rec: 09/12/24 15:51 NM [id number]) Manual Assessments Soft Tissue Assessment Soft Tissue Mobility Assessment increased restrictions of B hamstrings R>L, L achilles/ calf more restricted than R Joint Mobility Assessment Joint Mobility Assessment decreased R knee jt mobility, decreased L foot mobility PT-OP-J Posture/Palpation/Skin Start: 09/12/24 14:23 Freq: Status: Active Protocol: Document 09/12/24 14:24 NM (Rec: 09/12/24 15:51 NM [id number]) Palpation Assessment Location L knee Palpation Details No tenderness to palpation R knee Palpation Details Mild swelling compared to LLE especially behind posterolateral knee No tenderness to palpation PT-OP-K Range of Motion Start: 09/12/24 14:23 Freq: Status: Active Protocol: Document 10/27/24 09:48 NM (Rec: 10/27/24 10:32 NM [id number]) Knee Goniometric Range of Motion Knee Right Flexion Active (degrees) 125 Extension Active (degrees) 3 Comments 10/10/24: lacking 3 deg ext Left Flexion Active (degrees) 130 Extension Active (degrees) 0 PT-OP-L Special Tests Start: 09/12/24 14:23 Freq: Status: Active Protocol: Document 09/12/24 14:24 NM (Rec: 09/12/24 15:51 NM [id number]) Special Tests Knee Special Tests Varus Test Results - Comments 0 and 25 deg, B Valgus Test Results - Comments 0 and 25 deg, B Yuri Test Test Results - Comments B PT-OP-M Strength Start: 09/12/24 14:23 Freq: Status: Active Protocol: Document 10/27/24 09:48 NM (Rec: 10/27/24 10:32 NM [id number]) Hip Strength Hip Manual Muscle Testing Right Flexion (L2) 4+ Good+ Extension (S1) 4+ Good+ Abduction 4+ Good+ Adduction 4+ Good+ External Rotation 4+ Good+ Internal Rotation 4+ Good+ Left Flexion (L2) 4+ Good+ Extension (S1) 4+ Good+ Abduction 4+ Good+ Adduction 4+ Good+ External Rotation 4+ Good+ Internal Rotation 4+ Good+ Knee Strength Knee Manual Muscle Testing Right Flexion (S2) 4+ Good+ Extension (L3) 4+ Good+ Left Flexion (S2) 4+ Good+ Extension (L3) 4+ Good+ PT-OP-Q Treatments Start: 09/12/24 14:23 Freq: Status: Active Protocol: Document 10/27/24 09:48 NM (Rec: 10/27/24 10:32 NM [id number]) Therapeutic Exercises Supine Exercises figure 4 stretch Supine Exercise Name foot on wall for supported hip flexion Side bilateral Reps/Minutes 60 ea Comments reports better for shoulder Sitting Exercises figure 4 stretch Sitting Exercise Name with slight over pressure and fwd lean Side bilateral Reps/Minutes 60 ea Comments reports better stretch LLE Standing Exercises squats Standing Exercise Name 1. chair squats, 2. wall squats for endurance Side bilateral Reps/Minutes 1. 10 c/ 5# db ea hand at chest, 2. 5x20 Comments no knee pain hip 3 way Standing Exercise Name AROM c/ squat hold and slider under foot (HEP review) Side bilateral Resistance level 1 band at ankles Reps/Minutes 10 ea Comments edu to use a towel or pillow case under foot at home TKE Standing Exercise Name HEP review Side bilateral Resistance no band Equipment Used staggered stance, PT hold band Reps/Minutes 15 Comments cues for no weight Neuro Re-Education Treatment Balance Activities Tandem Details HEP (no HO) Comments stance, 30 ea foot SLS Details HEP (no HO) Comments 30 ea foot PT-OP-T Assessment and Plan Start: 09/12/24 14:23 Freq: Status: Active Protocol: Document 10/27/24 09:48 NM (Rec: 10/27/24 10:32 NM [id number]) Physical Therapy Assessment Goals Four Impairment B hip ext/abd strength decreased, quad strength; squat challenging Short Term Goal (STG) Pt will be able to perform at least 10 B squats without compensation or knee pain for improved strength during transfers and strength for skiing stability 10/10/24: 10 squats (1/10 pain in knees) 10/27/24: slider squats, no knee pain; B squat c/ resistance, no knee pain STG Duration 5 weeks MET [employer] Goal (LTG) Pt will improve B hip extensory/abductor and quad strength to at least 4/5 MMT or better to demonstrate improved stability for skiing 10/10/24: 4/5 for all except R quads 4-/5 MMT 10/27/24: 4+/5 for all hip and knee, no pain LTG Duration 8 weeks MET Three Impairment R knee ROM lacking 5 deg ext, 125 deg flex Nursing Home Goal (LTG) Pt will improve R knee extension ROM to <3 deg in order to demonstrate increased TKE for gait and SLS 10/07/24: lacking 10 deg prior to manual treatment 10/10/24: lacking 3 deg before manual treatment 10/24/24: lacking 3 deg ext LTG Duration 8 weeks MET Two Impairment SLS impaired Nursing Home Goal (LTG) Pt will be able to perform single leg stance for at least 10 seconds without increased knee or hip pain to improve stability during gait and skiing 10/10/24: 8 sec LLE, 10 sec RLE w/o UE support, no pain 10/12/24: after cueing for gluteal activation: 23 sec LLE , 17 sec RLE w/o UE support, no pain LTG Duration 8 weeks MET 10/12 One Impairment not performing HEP for knees Short Term Goal (STG) Pt will report compliance with HEP at least 2x/wk in order to maximize progression with PT 10/10/24: compliant with HEP STG Duration 4 weeks MET Nursing Home Goal (LTG) Pt will be IND with HEP to transition to maintenance program upon discharge 10/27/24: IND with HEP LTG Duration 8 weeks MET Progress Towards Goals Progress Comments All goals met Assessment Summary Assessment Pt met all PT goals today. Demos improvements in quad and glute strength. Progressed to resisted slider squats for hip/quad strength. Demos less tendency for quad dominance but still needs occasional cueing for execution and to limit compensations as fatigues. Educated on progressions with HEP. Physical Therapy Plan Frequency and Duration Frequency of Treatment 2x/Week Duration of treatment (weeks) 8 Plan of Care Start Date 09/12/24 Plan of Care End Date 11/11/24 Therapeutic Interventions Therapeutic Interventions Balance Training,Gait Training ,Home Exercise Program,Joint Mobilizations,Manual Therapy, Neuromuscular Re-education, Orthotic/Prosthetic Management ,Patient/Caregiver Education, Self-Care/Home Management, Sensory Integration,Soft Tissue Mobilization,Taping, Therapeutic Activities, Therapeutic Exercises Modalities Cold Pack/Ice Massage,Electric Stimulation,Hot Packs, Ultrasound Discharge Physical Therapy Discharge Reasons Goals Met Discharge Comments All goals met. Pt demos improved B knee ROM and strength. Pt is compliant with HEP. PT and pt discussed discharge to maintenance program for continued strengthening and AROM as has met goals and is progressing well with symptom management. Will be seeking a consultation with ortho specialist. Reports minimal impairments with ADLs due to pain per pt subjective and LEFS. Pt and PT in agreement about discharge to maintenance program. PT also educated pt to follow up sooner with PCP or ortho if knee symptoms return, change, worsen. Pt verbalizes undertanding. Next Visit Focus/Plan Next Note Type Discharge Summary Next Visit Plan discharge from PT
== END 2024-11-07 10:41 | disposition home or self-care (01) ==
LOC: PHYS 09:45
PROVIDERS: Family Provider Internal Medicine; PCP Internal Medicine; Referring Provider Internal Medicine; Visit Provider Internal Medicine
DX: M17.0 Bilateral primary osteoarthritis of knee (principal); M25.662 Stiffness of left knee, not elsewhere classified; M25.661 Stiffness of right knee, not elsewhere classified; R53.1 Weakness; R26.81 Unsteadiness on feet; R26.89 Other abnormalities of gait and mobility
CPT/HCPCS: 97110; 97140; 97161; 97530